=== PATIENT | female | born 1980 | race Caucasian/White ===

== ENCOUNTER 2019-10-01 18:25 | Emergency (ER) | payer MEDICARE, SELFPAY ==
[2019-10-01 18:32] VITALS: BP 120/87; PULSE 102; RESP 18; TEMP 36.6; O2SAT 98; BMI 22.8
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
--- NOTE | 2019-10-01 18:44 | W.ED.NECK ---
HPI - Neck Pain/Injury General: Chief Complaint: Neck Pain/Injury Stated Complaint: Neck pain Time Seen by Provider: 10/01/19 18:41 History of Present Illness: HPI Narrative: Patient was stepping up into [employer] this afternoon and she fell backwards landing on her back and now complains of upper back lower neck pain. MD complaint: neck pain and upper back pain Onset (ago): hour(s) Place: street/outdoors Severity: moderate Severity scale (1-10): 5 Quality: sharp and aching Duration: constant Relieving factors: immobilization Exacerbating factors: movement of neck Context: fall Associated symptoms: Reports no associated symptoms; Denies headache(s) or nausea Treatments prior to arrival: other (Took an alprazolam) Review of Systems Const: Denies: fever, chills or body aches Eyes: Denies: change in vision or blurry vision ENMT: Denies: throat pain or nasal congestion Card: Denies: chest pain or shortness of breath on exertion Resp: Denies: shortness of breath, productive cough or non-productive cough GI: Denies: abdominal pain, nausea or vomiting Musc: Reports: neck pain and back pain; Denies: extremity pain Skin/Breast: Denies: rash Neuro: Denies: headache Psych: Denies: anxiety or depression Kenn/Lymph: Denies: easy bruising PFSH ED PFSH: Social History Smoking and tobacco status: current every day smoker Female Reproductive History: Date of last menstrual period: 06/28/19 Physical Exam Const: COMMON NORMALS: no apparent distress, average body habitus and oriented x3 HENMT: COMMON NORMALS: normocephalic HEAD & SCALP: normal to inspection and normocephalic FACE & SINUS: normal facial exam Eye: COMMON NORMALS: conjunctivae normal GENERAL EYE: normal appearance of both eyes CONJUNCTIVA: Yes conjunctivae normal Neck/C-Spine: COMMON NORMALS: no JVD GENERAL: Yes normal visual inspection CERVICAL SPINE: Yes cervical ROM normal and Yes cervical spine tenderness Chest: COMMONS NORMALS: inspection of chest normal Resp: COMMON NORMALS: normal respiratory effort and clear to auscultation bilaterally AUSCULTATION: clear to auscultation bilaterally Cardio: COMMON NORMALS: no JVD, regular rate and regular rhythm RATE: regular rate RHYTHM: regular rhythm GI: COMMON NORMALS: normal to inspection, nondistended, normoactive bowel sounds Back/Pelvis: THORACIC SPINE/UPPER BACK: Yes normal to inspection and Yes thoracic spinal tenderness Extremity: COMMON NORMALS: normal to inspection and full ROM Neuro: COMMON NORMALS: oriented x3 Course Vital Signs: Vital signs: Vital Signs Temperature 97.8 F 10/01/19 18:32 Pulse Rate 102 H 10/01/19 18:32 Respiratory Rate 18 10/01/19 18:32 Blood Pressure 120/87 10/01/19 18:32 Pulse Oximetry 98 10/01/19 18:32 MDM - Neck Pain/Injury MDM Narrative: Medical decision making narrative: Discussed x-ray results with Dr. Perkins he recommends do a CT neck and head Discharge Plan Discharge Prescriptions: No Action alprazolam 0.5 mg tablet See Rx Instructions .ROUTE .COMPLEX RF: 0 fluoxetine 20 mg capsule 20 mg PO DAILY RF: 0 Coding Level of Care Code ED Mechanical Systems Engineer for Lang Fwd Exam Comprehensive
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
[2019-10-01 19:24] VITALS: O2SAT 97
[2019-10-01] MEDS: HYDROcodone-acetaminophen 7.5-325 mg Tablet 1 TAB PO (19:43)
[2019-10-01 19:46] VITALS: BP 133/90; PULSE 90; RESP 18; O2SAT 99
== END 2019-10-01 19:46 | disposition home or self-care (01) ==
PROVIDERS: Emergency Provider Nurse Practitioner Family; PCP Nurse Practitioner
DX: M54.2 Cervicalgia (principal); M54.6 Pain in thoracic spine; F17.200 Nicotine dependence, unspecified, uncomplicated
CPT/HCPCS: 12345; 70450; 72040; 72072; 72125; 99282; 99283

== ENCOUNTER 2022-08-06 05:56 | Emergency (ER) | payer MEDICARE, MEDICAID, SELFPAY ==
--- NOTE | 2022-08-06 06:02 | XRR_ITS ---
PROCEDURE INFORMATION: Exam: XR Left Ankle Exam date and time: 08/06/2022 6:20 AM Age: 42 years old Clinical indication: Pain; Ankle; Left TECHNIQUE: Imaging protocol: Radiologic exam of the Left ankle. Views: 3 or more views. COMPARISON: No relevant prior studies available. FINDINGS: Bones/joints: Normal. Soft tissues: Mild soft tissue swelling. XR/XR ankle LT min 3V* [id number] IMPRESSION: Negative for acute osseous injury.
[2022-08-06 06:03] VITALS: BP 119/67; PULSE 100; RESP 18; TEMP 36.1; O2SAT 100; BMI 22.3
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
[2022-08-06 06:30] VITALS: BP 123/72; PULSE 88; RESP 16; O2SAT 98
[2022-08-06 06:54] VITALS: BP 116/79; PULSE 97; RESP 16; O2SAT 98
== END 2022-08-06 06:57 | disposition home or self-care (01) ==
PROVIDERS: Emergency Provider Family Medicine; PCP Nurse Practitioner
DX: S93.402A Sprain of unspecified ligament of left ankle, initial encounter (principal); Y04.8XXA Assault by other bodily force, initial encounter
CPT/HCPCS: 73610; 99283

== ENCOUNTER 2022-08-06 14:37 | Emergency (ER) | payer MEDICARE, MEDICAID, SELFPAY ==
[2022-08-06 14:41] VITALS: BMI 22.3
--- NOTE | 2022-08-06 16:15 | PC.PHAR ---
unable to verify medications with pt-no meds pull up on ext med history-diclofenac 75mg q12h prn written on 08/06/22-[facility] last filled prozac 20mg daily and zyprexa 10mg daily last filled 10/2020 14d/s-
--- NOTE | 2022-08-06 16:30 | ECG_ITS ---
[facility] Test Date: 2022-08-06 Pat Name: Ellie Adler Department: Room: Gender: Female Printing Pressman: : 1980 Requested By: Ralph Wilde Order Number: [id number] Cathie MD: Mary Tejeda M.D. Measurements Intervals [place] Rate: 100 P: 66 TX: 149 QRS: 76 QRSD: 82 T: 60 QT: 349 QTc: 452 Interpretive Statements SINUS TACHYCARDIA MINIMAL VOLTAGE CRITERIA FOR LVH, CONSIDER NORMAL VARIANT [MEETS CRITERIA IN ONE OF: R(aVL), S(V1), R(V5), R(V5/V6)+S(V1)] ABNORMAL RHYTHM ECG Compared to ECG 02/13/2018 11:57:38 No significant changes Electronically Signed On 08-06-2022 20:59:39 COVER STRIPPER by Mary Tejeda M.D. [email or web address]
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
[2022-08-06 17:06] LABS: Amphetamines Screen Urine Positive (Negative); Barbiturates Screen Urine Negative (Negative); Benzodiazepines Screen Urine Negative (Negative); Cocaine Screen Urine Negative (Negative); Opiate Screen Urine Negative (Negative); PCP Screen Urine Negative (Negative); THC Screen Urine Positive (Negative)
[2022-08-06 17:18] LABS: Bilirubin Urine Neg (Negative); Blood Urine Neg (Negative); Glucose Urine UA Norm (Normal); Ketones Urine 1+ (Negative); Nitrate Urine Negative (Negative); Protein Urine Neg (Negative); Urine Appearance Hazy (CLEAR); Urine Color Yellow (Yellow); Urobilinogen Urine Neg (Negative); pH Urine 5 (5-7)
[2022-08-06 17:19] LABS: Add Urine Culture? No; Add Urine Microscopic? YES; Bacteria Urine 1+ /hpf; Leukocyte Esterase Urine Negative (Negative); RBC Urine 0-4 /hpf (0-2); WBC Urine 0-4 /hpf (0-5)
--- NOTE | 2022-08-06 17:58 | PC.NURSE ---
PT REFUSED DC VITALS
== END 2022-08-06 17:30 | disposition home or self-care (01) ==
PROVIDERS: Emergency Provider Family Medicine; PCP Nurse Practitioner
DX: F15.10 Other stimulant abuse, uncomplicated (principal)
CPT/HCPCS: 80306; 81001; 93005; 99283

== ENCOUNTER 2022-08-06 22:17 | Inpatient (IN) | payer MEDICARE, MEDICAID, SELFPAY ==
[2022-08-06 22:20] VITALS: BP 107/74; PULSE 109; RESP 18; TEMP 36.6; O2SAT 98; BMI 20.5
--- NOTE | 2022-08-06 22:29 | W.ED.OVERDOS ---
HPI - Overdose General: Chief Complaint: Overdose Stated Complaint: OD Time Seen by Provider: 08/06/22 22:18 Source: EMS Mode of arrival: EMS Limitations: altered mental status History of Present Illness: 42-year-old female since her third visit today here in 12 hours patient had police called on her at the [employer] and she is being disruptive and psychotic she is here by EMS currently she has flight of diabetes she is telling me that she is seeing Satan and she keeps praying stable telling her name but not really able answer very other questions. She does have motor agitation here as well keep standing up she has been using methamphetamine as well. Review of Systems General: Reports: ROS unobtainable due to mental status PFS ED PFSH: Medical History No significant past medical history Surgical History No significant past surgical history Social History Smoking and tobacco status: current every day smoker Female Reproductive History: Date of last menstrual period: 06/28/19 Physical Exam Const: COMMON NORMALS: negative for patient oriented x3 GENERAL APPEARANCE: anxious HENMT: COMMON NORMALS: normocephalic and atraumatic HEAD & SCALP: normocephalic and atraumatic Eye: COMMON NORMALS: Equal, round and reactive pupils present and EOMs intact bilaterally PUPIL: Yes Equal, round and reactive pupils present Neck/C-Spine: COMMON NORMALS: full ROM and supple Chest: COMMONS NORMALS: normal inspection of the chest and normal palpation of entire chest wall Resp: COMMON NORMALS: normal respiratory effort, No retractions, No use of accessory muscles and clear to auscultation bilaterally AUSCULTATION: clear to auscultation bilaterally Cardio: COMMON NORMALS: regular rate, regular rhythm and No murmurs present (Cardio) RATE: regular rate RHYTHM: regular rhythm GI: COMMON NORMALS: Normal to inspection, nondistended, normoactive bowel sounds present, Soft to palpation, non-tender and no masses PALPATION: Yes Soft to palpation Extremity: COMMON NORMALS: normal to inspection and full ROM Neuro: COMMON NORMALS: moves all extremities and no focal motor deficits; negative for patient oriented x3 Psych: APPEARANCE: Yes disheveled and Yes bizarre ATTITUDE: Yes bizarre MOOD & AFFECT: Yes anxious and Yes expansive affect THOUGHT CONTENT: Yes delusions and Yes Hallucination(s) present Skin: COMMON NORMALS: no rashes or lesions noted and no wounds GENERAL SKIN EXAM: no rashes or lesions noted Course Vital Signs: Vital signs: Vital Signs Temperature 98 F 08/06/22 22:20 Pulse Rate 109 H 08/06/22 22:20 Respiratory Rate 18 08/06/22 22:20 Blood Pressure 107/74 08/06/22 22:20 Pulse Oximetry 98 08/06/22 22:20 MDM - Overdose Medical Decision Making Patient presents here with acute psychosis likely from methamphetamine abuse patient placed under 96-hour hold medically cleared I spoke to his psychiatrist will admit at this time. Lab Data 08/06/22 22:48 08/06/22 22:48 Discharge Plan Discharge Patient Disposition: Admitted As Inpatient Admit Provider: Esteban Weeks Clinical Impression: Methamphetamine abuse, Acute psychosis Condition: Stable Coding Level of Care Code ED Bus Driver/Monitor for Rl Fwd Exam Comprehensive
[2022-08-06] MEDS: LORazepam 2 mg/mL INJ 1 mL IM (22:55)
[2022-08-06] MEDS: haloperidol inj 5 mg/mL INJ 1 mL IM (22:55)
[2022-08-06 23:04] LABS: Basophils # 0.1 10^3/uL (0.0-0.1); Basophils % 0.6 %; Eosinophils # 0.4 10^3/uL (0.0-0.8); Eosinophils % 3.8 %; Hematocrit 41.8 % (37.0-47.0); Hemoglobin 13.4 g/dL (11.5-15.3); Lymphocytes # 2.6 10^3/uL (0.8-4.8); Lymphocytes % 22.3 %; Mean Corpuscular HGB Conc 32.1 g/dL (30.0-36.0); Mean Corpuscular Hemoglobin 26.7 pg (28.0-34.0); Mean Corpuscular Volume 83.3 fl (81-99); Mean Platelet Volume 10.3 fL (7.4-10.4); Monocytes % 8.7 %; Neutrophils % 64.3 %; Nucleated Red Blood Cells % 0 %; Platelet Count 407 10^3/cmm (130-400); Red Blood Count 5.02 10^6/uL (4.1-5.3); Red Cell Distribution Width 13.1 % (12.1-15.1); White Blood Count 11.7 10^3/uL (4.0-10.0)
[2022-08-06 23:12] LABS: Alanine Aminotransferase 71 U/L (0-33); Albumin Level 4.2 g/dL (3.5-5.2); Alkaline Phosphatase 99 U/L (35-105); Anion Gap 14.6 (5-19); Aspartate Amino Transferase 55 U/L (0-32); Blood Urea Nitrogen 16 mg/dL (6-20); Calcium 9.2 mg/dL (8.5-10.5); Carbon Dioxide 22 mmol/L (22-29); Chloride 101 mmol/L (98-107); Globulin 2.9 g/dL (1.3-4.6); Glomerular Filtration Rate 136.6 mL/min (90-130); Glucose 104 mg/dL (65-115); Osmolality Calculated 279 mOsm/kg (285-295); Potassium 3.6 mmol/L (3.5-5.1); Sodium 134 mmol/L (136-145); Total Bilirubin 0.4 mg/dL (0.15-1.2); Total Protein 7.1 g/dL (6.6-8.7)
[2022-08-06 23:22] LABS: Acetaminophen < 5.0 ug/mL (10-30); Alcohol Level < 10 mg/dL (0-10); Salicylate < 0.3 mg/dL (3-10)
[2022-08-07 00:21] VITALS: BP 105/63; PULSE 96; RESP 16; TEMP 36.6; O2SAT 97
[2022-08-07 00:31] VITALS: BP 97/63; PULSE 110; RESP 16
--- NOTE | 2022-08-07 01:37 | PC.NURSE ---
pt admitted to [facility] from ED under 96 hour hold. pt arrived to unit stumbling and unable to stand or walk without assistance. pt answers to name but is unable to stay awake for assessment. pt is very malodorous and disheveled. wanded for safety as pt cannot be changed into unit scrubs at this time. pt had gatito wrap to left ankle. this staff removed this and placed in pt belongings. no other issues can be noted at this time. will monitor for safety.
--- NOTE | 2022-08-07 02:58 | PC.NURSE ---
At 2255 notice of rights of involuntary patient read to patient. All questions answered. Patient gave verbal confirmation of understanding. JR David, at bedside.
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
--- NOTE | 2022-08-07 10:46 | PC.NURSE ---
Pt has been resting in bed with eyes closed since start of shift at 0700; respirations have remained even and unlabored.
[2022-08-07 14:00] VITALS: BP 106/55; PULSE 116; RESP 20; TEMP 36.6; O2SAT 97
--- NOTE | 2022-08-07 14:37 | PC.NURSE ---
Attempted to awaken pt to complete admission. Pt did not awaken; just continued to snore. Respirations even and unlabored.
--- NOTE | 2022-08-07 15:27 | PC.NURSE ---
Pt up to nurses station, walking aimlessly and mumbling to herself. Staff was able to ascertain the pt wanted some phone numbers and wondered when she could leave. Staff provided pt water and this director underwriter sales walked with the patient back to her room in an effort to complete the pt's admission, however, once the pt lay down on her bed, she returned to sleep. Respirations even and unlabored.
--- NOTE | 2022-08-07 15:33 | PC.OT ---
OT Eval Attempted - Therapist attempted eval x2 on this day, patient would not arouse from sleeping in order to participate in evaluation process. Will attempt at a later date.
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
[2022-08-07] MEDS: hyDROXYzine 25 mg Capsule 50 MG PO (18:12)
[2022-08-07 18:40] LABS: Amphetamines Screen Urine Positive (Negative); Benzodiazepines Screen Urine Positive (Negative); Cocaine Screen Urine Negative (Negative); PCP Screen Urine Negative (Negative); THC Screen Urine Positive (Negative)
[2022-08-07 18:41] LABS: Barbiturates Screen Urine Negative (Negative); Opiate Screen Urine Negative (Negative)
[2022-08-07 22:00] VITALS: RESP 16
[2022-08-08] MEDS: hyDROXYzine 25 mg Capsule 50 MG PO ×3 (11:48→20:08)
[2022-08-08 14:00] VITALS: BP 110/72; PULSE 91; RESP 18; O2SAT 98
[2022-08-08] MEDS: nicotine 2 mg Gum BUCCAL ×3 (14:52→20:09)
--- NOTE | 2022-08-08 17:00 | P.NPUPN_ITS ---
Subjective NPU Subjective: Patient presented today reporting that things were going better. She was much less isolative and out on the unit. However her insight continued to be slim to none as she denied any issues involving addiction and reported that her issue was regarding the fact that she had not accepted Satan. She certainly did not believe that medications were something to be considered and she reported she was ready to leave as soon as we would discharge her. Mental Status Exam MSE Comments: This is a slender but well-nourished, well-developed appearing white female looking older than her stated age with limited grooming and absent eye contact.? No abnormal movements except for mild to moderate psychomotor retardation.? More cooperative with exam in mild to moderate distress.? Speech was limited and decreased rate and volume.? Mood described as fine, affect irritable.? Thought process linear at best.? Thought content: Patient denies suicidal or homicidal ideation, there were no delusions reported but clear hyperreligious, paranoid and persecutory delusions noted.? Attention, concentration and memory were limited but none were formally tested.? She is alert and appeared to be oriented to person and place.? Insight, judgment and impulse control are are impaired. Vitals/I&O/Wt Last Vital Signs Temp 97.8 F 08/07/22 14:00 Pulse 91 08/08/22 14:00 Resp 18 08/08/22 14:00 BP 110/72 08/08/22 14:00 Pulse Ox 98 08/08/22 14:00 Weight last 48 hrs Weight 61.235 kg Data NPU 08/06/22 22:48 08/06/22 22:48 A&P Assessment and plan (1) Methamphetamine use disorder, severe: (2) Acute psychosis: Plan This is a 42-year-old white female with a long history of mental health and addiction issues who presented after being picked up by police with bizarre beh aviors and a local convenience store not well enough to provide contemporaneous information. 1. Continue current medications. Currently refusing medications. 2. Continue every 15 minute checks for safety. 3. Encourage individual, group and milieu therapies. 4. Encourage sober living treatment after discharge at the highest level of care to which she is willing to commit. Involuntary Hold Information 96 Hour Hold: 96 Hour Involuntary Admission: Yes Attestations NPU Medical Necessity Statement*: Inpatient psychiatric hospitalization is medically necessary and the clinically appropriate intervention at this time. We will monitor/initiate medications and make changes as indicated. Likely length of stay 7 to 10 days. Coding Level of Care Code Acute Code for g Fwd Diagnoses Methamphetamine use disorder, severe F15.20 Acute psychosis F23
[2022-08-08] MEDS: trazodone 50 mg Tablet PO (20:06)
[2022-08-08] MEDS: diclofenac 75 mg DR Tablet PO (20:08)
[2022-08-08] MEDS: OLANZapine 5 mg ODT PO (20:09)
[2022-08-09] MEDS: nicotine 2 mg Gum BUCCAL ×2 (11:44→15:12)
[2022-08-09] MEDS: hyDROXYzine 25 mg Capsule 50 MG PO ×2 (13:13→20:11)
[2022-08-09 14:00] VITALS: BP 109/71; PULSE 113; RESP 17; TEMP 36.6; O2SAT 97
--- NOTE | 2022-08-09 15:37 | W.PM.NPUPNS ---
Subjective NPU Subjective: Today continuing to report that she believes she is here because she will not accept Satan and denounce her [employer]. She initially was saying that she would not consider medications but then at least was willing to hear medications that this justowriter operator might consider. We discussed the fact that without medication her discharge timeline is greatly increased. Mental Status Exam MSE Comments: This is a slender but well-nourished, well-developed appearing white female looking older than her stated age with limited grooming and absent eye contact.? No abnormal movements except for mild to moderate psychomotor retardation.? More cooperative with exam in mild distress.? Speech was more spontaneous, but decreased rate and volume.? Mood described as fine, affect less irritable.? Thought process linear at best.? Thought content: Patient denies suicidal or homicidal ideation, there were no delusions reported but clear hyperreligious, paranoid and persecutory delusions noted.? Attention and concentration are improving and memory was unreliable but none were formally tested.? She is alert and appeared to be oriented to person and place.? Insight, judgment and impulse control are are impaired. Vitals/I&O/Wt Last Vital Signs Temp 97.9 F 08/09/22 14:00 Pulse 113 H 08/09/22 14:00 Resp 17 08/09/22 14:00 BP 109/71 08/09/22 14:00 Pulse Ox 97 08/09/22 14:00 Weight last 48 hrs Weight 61.235 kg Data NPU 08/06/22 22:48 08/06/22 22:48 A&P Assessment and plan (1) Methamphetamine use disorder, severe: (2) Acute psychosis: Plan This is a 42-year-old white female with a long history of mental health and addiction issues who presented after being picked up by police with bizarre behaviors and a local convenience store not well enough to provide contemporaneous information. 1. Continue current medications. Currently refusing medications. 2. Continue every 15 minute checks for safety. 3. Encourage individual, group and milieu therapies. 4. Encourage sober living treatment after discharge at the highest level of care to which she is willing to commit. Involuntary Hold Information 96 Hour Hold: 96 Hour Involuntary Admission: Yes Attestations NPU Medical Necessity Statement*: Inpatient psychiatric hospitalization is medically necessary and the clinically appropriate intervention at this time. We will monitor/initiate medications and make changes as indicated. Likely length of stay 7 to 10 days. Coding Level of Care Code Acute Code for Chg Fwd Diagnoses Methamphetamine use disorder, severe F15.20 Acute psychosis F23
[2022-08-09] MEDS: OLANZapine 5 mg ODT PO (16:46)
[2022-08-09] MEDS: diclofenac 75 mg DR Tablet PO (20:10)
[2022-08-09] MEDS: trazodone 50 mg Tablet PO (21:13)
[2022-08-10] MEDS: nicotine 2 mg Gum BUCCAL ×3 (11:32→16:44)
[2022-08-10] MEDS: hyDROXYzine 25 mg Capsule 50 MG PO (11:32)
[2022-08-10] MEDS: OLANZapine 5 mg ODT PO (12:54)
--- NOTE | 2022-08-10 12:54 | PC.NURSE ---
PRN SENIOR DIRECTOR OF [employer]LOBAL [employer]CIAL [employer]CH[employer]UTIONS Patient approached nurses' station and stated she needed anxiety meds because she was having anxiety about everything in my life. This RN discussed coping mechanisms such as reading, writing, and exercise. Patient administered zyprexa 10 mg ODT.
[2022-08-10 14:00] VITALS: RESP 18
[2022-08-10] MEDS: haloperidol 5 mg Tablet PO (16:07)
--- NOTE | 2022-08-10 16:07 | PC.NURSE ---
PRN Landscaper Helper Patient approached this RN stating that she needed her anxiety medications now. This RN asked if anything in particular was making the patient anxious to which she replied, I'm just nervous. This RN suggested breathing techniques and other coping skills such as distraction. Patient continued to say she needed her meds. This RN asked again what was making her feel anxious or what was making her nervous to which the patient began yelling, oh my God! My fucking kids I guess. Damn! Patient was administered haldol 5 mg PO as it was too early to administer zyprexa or vistaril.
--- NOTE | 2022-08-10 18:13 | P.NPUPN_ITS ---
Subjective NPU Subjective: Patient presented today reporting that she is feeling better but focusing on discharge. We discussed the reason why she is in the hospital and she continues to be focused on not taking Satan as her savior and that the system has worked against her because of her Mandaen. She was resistant to medications that were suggested by this telegraphic typewriter operator chief but did agree to restarting her Zyprexa at a lower dose. We discussed risks, benefits and alternatives of the medications and she appeared to understand and agreed to proceed as documented in this note. Mental Status Exam MSE Comments: This is a slender but well-nourished, well-developed appearing white female looking older than her stated age with limited grooming and improving eye contact.? No abnormal movements except for mild psychomotor retar dation.? More cooperative with exam in mild distress.? Speech was more spontaneous, but decreased rate and volume.? Mood described as fine, affect less irritable.? Thought process linear at best.? Thought content: Patient denies suicidal or homicidal ideation, there were no delusions reported but clear hyperreligious, paranoid and persecutory delusions noted.? Attention and concentration are improving and memory was unreliable but none were formally tested.? She is alert and appeared to be oriented to person and place.? Insight, judgment and impulse control are are impaired. Vitals/I&O/Wt Last Vital Signs Temp 97.9 F 08/09/22 14:00 Pulse 113 H 08/09/22 14:00 Resp 18 08/10/22 14:00 BP 109/71 08/09/22 14:00 Pulse Ox 97 08/09/22 14:00 Data NPU 08/06/22 22:48 08/06/22 22:48 A&P Assessment and plan (1) Methamphetamine use disorder, severe: (2) Acute psychosis: Plan This is a 42-year-old white female with a long history of mental health and addiction issues who presented after being picked up by police with bizarre behaviors and a local convenience store not well enough to provide contemporaneous information. 1. Continue current medications. Restart Zyprexa 10 mg p.o. nightly with plan to titrate to effect. 2. Continue every 15 minute checks for safety. 3. Encourage individual, group and milieu therapies. 4. Encourage sober living treatment after discharge at the highest level of care to which she is willing to commit. Involuntary Hold Information 96 Hour Hold: 96 Hour Involuntary Admission: Yes Attestations NPU Medical Necessity Statement*: Inpatient psychiatric hospitalization is medically necessary and the clinically appropriate intervention at this time. We will monitor/initiate medications and make changes as indicated. Likely length of stay 6-9 days. Coding Level of Care Code Acute Code for Chg Fwd Diagnoses Methamphetamine use disorder, severe F15.20 Acute psychosis F23
[2022-08-10] MEDS: OLANZapine 10 mg TABLET PO (20:38)
[2022-08-10] MEDS: acetaminophen 325 mg Tablet 650 MG PO (20:39)
[2022-08-11 14:00] VITALS: BP 105/75; PULSE 125; RESP 18; TEMP 36.8; O2SAT 97
[2022-08-11] MEDS: docusate sodium 100 mg Capsule PO (14:55)
[2022-08-11] MEDS: nicotine 4 mg lozenge MUCOUS MEM ×3 (14:55→19:43)
[2022-08-11] MEDS: hyDROXYzine 25 mg Capsule 50 MG PO (14:57)
--- NOTE | 2022-08-11 17:20 | P.NPUPN_ITS ---
Subjective NPU Subjective: Patient presented today reporting that he is feeling much better in relation to her symptoms. She continues to be resistant to talking about her addiction and the role that they have played in her being hospitalized. She instead focused on having restarted the Zyprexa and feeling completely better. We discussed how we are seeing symptoms that are concerning for psychosis. She was resistant to that position and then turned her focus on whether she would be discharged tomorrow at the end of her life 6-hour hold and after a lengthy somewhat contentious discussion we agreed to talk again in the morning and make a decision about discharge versus 21-day hold. Mental Status Exam MSE Comments: This is a slender but well-nourished, well-developed appearing white female looking older than her stated age with limited grooming and improving eye contact.? No abnormal movements except for mild psychomotor retardation.? More cooperative with exam in mild distress.? Speech was more spontaneous, but decreased rate and volume.? Mood described as much better, affect less irritable.? Thought process linear and somewhat more organized.? Thought content: Patient denies suicidal or homicidal ideation, there were no delusions reported but clear hyperreligious, paranoid and persecutory delusions noted.? Attention and concentration are improving and memory was unreliable but none were formally tested.? She is alert and appeared to be oriented to person and place.? Insight, judgment and impulse control are are impaired. Vitals/I&O/Wt Last Vital Signs Temp 98.2 F 08/11/22 14:00 Pulse 125 H 08/11/22 14:00 Resp 18 08/11/22 14:00 BP 105/75 08/11/22 14:00 Pulse Ox 97 08/11/22 14:00 Data NPU 08/06/22 22:48 08/06/22 22:48 A&P Assessment and plan (1) Methamphetamine use disorder, severe: (2) Acute psychosis: Plan This is a 42-year-old white female with a long history of mental health and addiction issues who presented after being picked up by police with bizarre behaviors and a local convenience store not well enough to provide contemporaneous information. 1. Continue current medications. Restarted Zyprexa 10 mg p.o. nightly with plan to titrate to effect. 2. Continue every 15 minute checks for safety. 3. Encourage individual, group and milieu therapies. 4. Encourage sober living treatment after discharge at the highest level of care to which she is willing to commit. 5. We will get some collateral information and work with the treatment team to determine whether we will file a 21 day hold in the morning. Involuntary Hold Information 96 Hour Hold: 96 Hour Involuntary Admission: Yes Attestations NPU Medical Necessity Statement*: Inpatient psychiatric hospitalization is medically necessary and the clinically appropriate intervention at this time. We will monitor/initiate medications and make changes as indicated. Likely length of stay 5-8 days. 96-hour hold up tomorrow we will either need to release or placement 21-day-old. Coding Level of Care Code Acute Code for [facility] Fwd Diagnoses Methamphetamine use disorder, severe F15.20 Acute psychosis F23
[2022-08-11] MEDS: acetaminophen 325 mg Tablet 650 MG PO ×2 (18:11→21:22)
[2022-08-11] MEDS: magnesium hydroxide 30 mL UDC PO (20:38)
[2022-08-11] MEDS: OLANZapine 10 mg TABLET PO (20:38)
[2022-08-11] MEDS: trazodone 50 mg Tablet PO (20:38)
--- NOTE | 2022-08-12 13:25 | DCPLANNER ---
IMM was printed and given to pt with rights explained. Copy placed in pts chart.
[2022-08-12 14:00] VITALS: BP 111/73; PULSE 96; RESP 18; TEMP 36.6; O2SAT 97
[2022-08-12] MEDS: nicotine 4 mg lozenge MUCOUS MEM (14:07)
[2022-08-12] MEDS: hyDROXYzine 25 mg Capsule 50 MG PO (14:54)
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
[2022-08-12 16:04] VITALS: BP 111/73; PULSE 96; RESP 18; TEMP 36.6; O2SAT 97
== END 2022-08-12 17:01 | disposition home or self-care (01) | DRG 897 ==
LOC: ER 22:38 → NP 22:42
PROVIDERS: Admitting Provider Psychiatry & Neurology Psychiatry; Emergency Provider Emergency Medicine; PCP Nurse Practitioner; Visit Provider Psychiatry & Neurology Psychiatry
DX: F15.259 Other stimulant dependence with stimulant-induced psychotic disorder, unspecified (principal); F12.10 Cannabis abuse, uncomplicated; F17.210 Nicotine dependence, cigarettes, uncomplicated
CPT/HCPCS: 73610; 80053; 80306; 80307; 81001; 85025; 93005; 96372; 97165; 99238; 99283; 99285; J1630; J2060

== ENCOUNTER 2022-08-27 13:14 | Emergency (ER) | payer MEDICARE, MEDICAID, SELFPAY ==
[2022-08-27 13:16] VITALS: BP 110/71; PULSE 81; RESP 16; O2SAT 99
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
[2022-08-27 13:57] VITALS: PULSE 81; RESP 16; O2SAT 93
--- NOTE | 2022-08-28 10:53 | DCPLANNER ---
Addendum entered by Betina Aleman 09/16/22 08:09: Patient had a follow up appointment scheduled with ortho - patient did not attend appointment Addendum entered by Betina Aleman 09/01/22 14:41: Patient has a follow up appointment scheduled for Thursday, September 08, 2022 at 11:[address] Soares at ortho. Clinic will call patient with appointment information. Original Note: manager reliability had message to schedule a follow up appointment for patient with ortho. manager reliability sent patients information to the front office staff at ortho. Patients information will be printed and reviewed. Clinic will call patient with appointment information.
== END 2022-08-27 13:58 | disposition home or self-care (01) ==
PROVIDERS: Emergency Provider Family Medicine; PCP Nurse Practitioner
DX: G89.29 Other chronic pain (principal); M54.2 Cervicalgia
CPT/HCPCS: 99283

== ENCOUNTER → 2022-11-26 13:19 | Outpatient (BNVA) | payer MEDICARE, MEDICAID, SELFPAY | PROVIDERS: PCP Nurse Practitioner; Visit Provider Physician Assistant | DX: M54.2 Cervicalgia (principal) | CPT/HCPCS: 72050; 99203 ==

== ENCOUNTER 2023-02-06 15:34 | Inpatient (IN) | payer MEDICARE, MEDICAID, SELFPAY ==
[2023-02-06 15:58] VITALS: PULSE 89; RESP 18; O2SAT 95
--- NOTE | 2023-02-06 16:05 | ED.C_ITS ---
Documented by User: Vikash Laurent MD 02/09/23 06:10 HPI - Psych General: Chief Complaint: Psychiatric Symptoms Stated Complaint: sob Time Seen by Provider: 02/06/23 16:03 History of Present Illness: 42-year-old female presents emergency department with heightened mood. She is very erratic with her thinking she is yelling in the waiting room and yelling in the ER exam room. She states she did smoke some marijuana earlier and does intermittently drink alcohol. She appears to be very elevated and appears to be having visual hallucinations. She states that she feels like something is crawling on her and crawling on her mouth. She hyper excited with exaggerated movements. Associated symptoms: Reports visual hallucinations; Deny homicidal ideation or suicidal ideation Review of Systems General: Reports: 10 or more systems reviewed and unremarkable except in HPI and below Psych: Reports: anxiety, mood swings, sleeping less and visual hallucinations; Denies: suicidal ideation or homicidal ideation [facility] ED PFSH: Medical History Methamphetamine abuse No significant past medical history Surgical History No significant past surgical history Social History Smoking and tobacco status: unknown if ever smoked Substance/Drug Use: current Physical Exam Const: COMMON NORMALS: no acute distress, patient oriented x3, no limitations and alert HENMT: COMMON NORMALS: normocephalic, atraumatic, hearing grossly normal bilaterally, external ears normal, Normal external nose present and moist oral mucous membranes HEAD & SCALP: normocephalic and atraumatic NOSE: Normal external nose present EXTERNAL EAR: Yes external ears normal Eye: COMMON NORMALS: Equal, round and reactive pupils present, EOMs intact bilaterally and no scleral icterus PUPIL: Yes Equal, round and reactive pupils present Neck/C-Spine: COMMON NORMALS: full ROM, no lymphadenopathy, supple and no meningeal signs Chest: COMMONS NORMALS: normal palpation of entire chest wall Resp: COMMON NORMALS: normal respiratory effort, No use of accessory muscles and clear to auscultation bilaterally AUSCULTATION: clear to auscultation bilaterally Cardio: COMMON NORMALS: regular rate, regular rhythm, S1 normal heart sound present, S2 normal heart sound present and Peripheral pulses 2+ throughout RATE: regular rate RHYTHM: regular rhythm HEART SOUNDS: S1 normal heart sound present and S2 normal heart sound present PERIPHERAL PULSES: Peripheral pulses 2+ throughout GI: COMMON NORMALS: Normal to inspection, nondistended, normoactive bowel sounds present, Soft to palpation, non-tender and No hepatosplenomegaly present PALPATION: Yes Soft to palpation and Yes No hepatosplenomegaly present Extremity: COMMON NORMALS: normal to inspection, full ROM and capillary refill normal Neuro: COMMON NORMALS: patient oriented x3, moves all extremities and no sensory deficits noted SENSORIUM/ORIENTATION: Yes alert MENINGEAL SIGNS: Yes no meningeal signs Psych: APPEARANCE: Yes disheveled ATTITUDE: Yes paranoid, Yes Belligerent attititude/behavior present and Yes agitated ACTIVITY/MOTOR BEHAVIOR: Yes hyperactivity MOOD & AFFECT: Yes anxious, Yes irritable, Yes hostile affect and Yes expansive affect Course Vital Signs: Vital signs: Vital Signs Temperature 97.9 F 02/08/23 14:18 Pulse Rate 97 02/08/23 14:18 Respiratory Rate 16 02/08/23 14:18 Blood Pressure 98/66 02/08/23 14:18 Pulse Oximetry 99 02/08/23 14:18 Oxygen Delivery Me thod Room Air 02/08/23 14:00 MDM - Psych Lab Data 02/06/23 16:44 02/06/23 16:44 Laboratory Results WBC 13.8 10^3/uL (4.0-10.0) H 02/06/23 16:44 RBC 5.23 10^6/uL (4.1-5.3) 02/06/23 16:44 Hgb 14.2 g/dL (11.5-15.3) 02/06/23 16:44 Hct 44.8 % (37.0-47.0) 02/06/23 16:44 MCV 85.7 fl (81-99) 02/06/23 16:44 MCH 27.2 pg (28.0-34.0) L 02/06/23 16:44 MCHC 31.7 g/dL (30.0-36.0) 02/06/23 16:44 RDW 13.2 % (12.1-15.1) 02/06/23 16:44 Plt Count 388 10^3/cmm (130-400) 02/06/23 16:44 MPV 9.9 fL (7.4-10.4) 02/06/23 16:44 Neut % (Auto) 66.0 % 02/06/23 16:44 Lymph % (Auto) 21.4 % 02/06/23 16:44 [place] % (Auto) 8.4 % 02/06/23 16:44 Eos % (Auto) 3.1 % 02/06/23 16:44 Baso % (Auto) 0.8 % 02/06/23 16:44 Neut # (Auto) 9.10 10^3/uL (1.8-7.7) H 02/06/23 16:44 Lymph # (Auto) 2.9 10^3/uL (0.8-4.8) 02/06/23 16:44 [place] # (Auto) 1.2 10^3/uL (0.2-0.9) H 02/06/23 16:44 Eos # (Auto) 0.4 10^3/uL (0.0-0.8) 02/06/23 16:44 Baso # (Auto) 0.1 10^3/uL (0.0-0.1) 02/06/23 16:44 Nucleated RBC % (auto) 0 % 02/06/23 16:44 Nucleated RBCs # 0.0 /100WBC 02/06/23 16:44 Sodium 138 mmol/L (136-145) 02/06/23 16:44 Potassium 3.4 mmol/L (3.5-5.1) L 02/06/23 16:44 Chloride 101 mmol/L (98-107) 02/06/23 16:44 Carbon Dioxide 25 mmol/L (22-29) 02/06/23 16:44 Anion Gap 15.4 (5-19) 02/06/23 16:44 BUN 14 mg/dL (6-20) 02/06/23 16:44 Creatinine 0.7 mg/dL (0.5-0.9) 02/06/23 16:44 GFR Calculation 92.7 mL/min (90-130) 02/06/23 16:44 Glucose 103 mg/dL (65-115) 02/06/23 16:44 Calculated Osmolality 287 mOsm/kg (285-295) 02/06/23 16:44 Calcium 9.9 mg/dL (8.5-10.5) 02/06/23 16:44 Total Bilirubin 0.5 mg/dL (0.15-1.2) 02/06/23 16:44 AST 63 U/L (0-32) H 02/06/23 16:44 ALT 42 U/L (0-33) H 02/06/23 16:44 Alkaline Phosphatase 93 U/L (35-105) 02/06/23 16:44 Total Protein 7.4 g/dL (6.6-8.7) 02/06/23 16:44 Albumin 4.4 g/dL (3.5-5.2) 02/06/23 16:44 Globulin 3.0 g/dL (1.3-4.6) 02/06/23 16:44 TSH 0.87 uIU/mL (0.27-4.20) 02/06/23 16:44 HCG, Qual Negative (Negative) 02/06/23 17:29 Urine Color Muriel (Yellow) 02/06/23 17:29 Urine Appearance Hazy (CLEAR) A 02/06/23 17:29 Urine pH 5 (5-7) 02/06/23 17:29 Ur Specific [place] 1.030 (1.005-1.030) 02/06/23 17: Urine Protein Trace (Negative) 02/06/23 17:29 Urine Glucose (UA) Norm (Normal) 02/06/23 17:29 Urine Ketones 1+ (Negative) H 02/06/23 17:29 Urine Blood 2+ (Negative) H 02/06/23 17:29 Urine Nitrate Negative (Negative) 02/06/23 17: Urine Bilirubin 1+ (Negative) H 02/06/23 17:29 Urine Urobilinogen 4 mg/dL (Negative) H 02/06/23 17:29 Ur Leukocyte Esterase 1+ (Negative) H 02/06/23 17:29 Urine RBC 0-4 /hpf (0-2) H 02/06/23 17:29 Urine WBC 5-10 /hpf (0-5) H 02/06/23 17:29 Ur Squamous Epith Cells 10-15 /hpf (0-5) H 02/06/23 17:29 Amorphous Sediment 2+ /hpf 02/06/23 17:29 Urine Bacteria 2+ /hpf (NONE) H 02/06/23 17:29 Salicylates < 0.3 mg/dL (3-10) L 02/06/23 16:44 Urine Opiates Screen Negative ng/mL (Negative) 02/06/23 17:29 Acetaminophen < 5.0 ug/mL (10-30) L 02/06/23 16:44 Ur Barbiturates Screen Negative ng/mL (Negative) 02/06/23 17:29 Ur Phencyclidine Scrn Negative ng/mL (Negative) 02/06/23 17:29 Ur Amphetamines Screen Positive ng/mL (Negative) H 02/06/23 17:29 U Benzodiazepines Scrn Negative ng/mL (Negative) 02/06/23 17:29 Urine Cocaine Screen Negative ng/mL (Negative) 02/06/23 17:29 U Marijuana (THC) Screen Positive ng/mL (Negative) H 02/06/23 17:29 Ethyl Alcohol < 10 mg/dL (0-10) 02/06/23 16:44 Discharge Plan Discharge Patient Disposition: Admitted As Inpatient Admit Provider: Tello Macias Clinical Impression: Drug-induced psychotic disorder, Acute psychosis, Methamphetamine use disorder, severe Condition: Stable Discharge Diet: Usual diet Discharge Activity: Resume usual activity Coding Level of Care Code ED Boiler Or Engine Operator for Chg Fwd Documented by User: Tenzin Smart MD 02/06/23 18:29 HPI - Psych General: Chief Complaint: Psychiatric Symptoms Stated Complaint: sob Time Seen by Provider: 02/06/23 16:03 PFSH ED PFSH: Medical History Methamphetamine abuse No significant past medical history Surgical History No significant past surgical history Social History Smoking and tobacco status: unknown if ever smoked Substance/Drug Use: current Course Vital Signs: Vital signs: Vital Signs Temperature 97.9 F 02/08/23 14:18 Pulse Rate 97 02/08/23 14:18 Respiratory Rate 16 02/08/23 14:18 Blood Pressure 98/66 02/08/23 14:18 Pulse Oximetry 99 02/08/23 14:18 Oxygen Delivery Me thod Room Air 02/08/23 14:00 MDM - Psych Medical Decision Making Patient presents here with acute psychosis likely methamphetamine induced. Patient is medically cleared I spoke to psychiatrist and will admit at this time. Lab Data 02/06/23 16:44 02/06/23 16:44 Laboratory Results WBC 13.8 10^3/uL (4.0-10.0) H 02/06/23 16:44 RBC 5.23 10^6/uL (4.1-5.3) 02/06/23 16:44 Hgb 14.2 g/dL (11.5-15.3) 02/06/23 16:44 Hct 44.8 % (37.0-47.0) 02/06/23 16:44 MCV 85.7 fl (81-99) 02/06/23 16:44 MCH 27.2 pg (28.0-34.0) L 02/06/23 16:44 MCHC 31.7 g/dL (30.0-36.0) 02/06/23 16:44 RDW 13.2 % (12.1-15.1) 02/06/23 16:44 Plt Count 388 10^3/cmm (130-400) 02/06/23 16:44 MPV 9.9 fL (7.4-10.4) 02/06/23 16:44 Neut % (Auto) 66.0 % 02/06/23 16:44 Lymph % (Auto) 21.4 % 02/06/23 16:44 [place] % (Auto) 8.4 % 02/06/23 16:44 Eos % (Auto) 3.1 % 02/06/23 16:44 Baso % (Auto) 0.8 % 02/06/23 16:44 Neut # (Auto) 9.10 10^3/uL (1.8-7.7) H 02/06/23 16:44 Lymph # (Auto) 2.9 10^3/uL (0.8-4.8) 02/06/23 16:44 [place] # (Auto) 1.2 10^3/uL (0.2-0.9) H 02/06/23 16:44 Eos # (Auto) 0.4 10^3/uL (0.0-0.8) 02/06/23 16:44 Baso # (Auto) 0.1 10^3/uL (0.0-0.1) 02/06/23 16:44 Nucleated RBC % (auto) 0 % 02/06/23 16:44 Nucleated RBCs # 0.0 /100WBC 02/06/23 16:44 Sodium 138 mmol/L (136-145) 02/06/23 16:44 Potassium 3.4 mmol/L (3.5-5.1) L 02/06/23 16:44 Chloride 101 mmol/L (98-107) 02/06/23 16:44 Carbon Dioxide 25 mmol/L (22-29) 02/06/23 16:44 Anion Gap 15.4 (5-19) 02/06/23 16:44 BUN 14 mg/dL (6-20) 02/06/23 16:44 Creatinine 0.7 mg/dL (0.5-0.9) 02/06/23 16:44 GFR Calculation 92.7 mL/min (90-130) 02/06/23 16:44 Glucose 103 mg/dL (65-115) 02/06/23 16:44 Calculated Osmolality 287 mOsm/kg (285-295) 02/06/23 16:44 Calcium 9.9 mg/dL (8.5-10.5) 02/06/23 16:44 Total Bilirubin 0.5 mg/dL (0.15-1.2) 02/06/23 16:44 AST 63 U/L (0-32) H 02/06/23 16:44 ALT 42 U/L (0-33) H 02/06/23 16:44 Alkaline Phosphatase 93 U/L (35-105) 02/06/23 16:44 Total Protein 7.4 g/dL (6.6-8.7) 02/06/23 16:44 Albumin 4.4 g/dL (3.5-5.2) 02/06/23 16:44 Globulin 3.0 g/dL (1.3-4.6) 02/06/23 16:44 TSH 0.87 uIU/mL (0.27-4.20) 02/06/23 16:44 HCG, Qual Negative (Negative) 02/06/23 17:29 Urine Color Muriel (Yellow) 02/06/23 17:29 Urine Appearance Hazy (CLEAR) A 02/06/23 17: Urine pH 5 (5-7) 02/06/23 17:29 Ur Specific [place] 1.030 (1.005-1.030) 02/06/23 17: Urine Protein Trace (Negative) 02/06/23 17: Urine Glucose (UA) Norm (Normal) 02/06/23 17:29 Urine Ketones 1+ (Negative) H 02/06/23 17:29 Urine Blood 2+ (Negative) H 02/06/23 17: Urine Nitrate Negative (Negative) 02/06/23 17: Urine Bilirubin 1+ (Negative) H 02/06/23 17:29 Urine Urobilinogen 4 mg/dL (Negative) H 02/06/23 17:29 Ur Leukocyte Esterase 1+ (Negative) H 02/06/23 17:29 Urine RBC 0-4 /hpf (0-2) H 02/06/23 17:29 Urine WBC 5-10 /hpf (0-5) H 02/06/23 17:29 Ur Squamous Epith Cells 10-15 /hpf (0-5) H 02/06/23 17:29 Amorphous Sediment 2+ /hpf 02/06/23 17:29 Urine Bacteria 2+ /hpf (NONE) H 02/06/23 17:29 Salicylates < 0.3 mg/dL (3-10) L 02/06/23 16:44 Urine Opiates Screen Negative ng/mL (Negative) 02/06/23 17: Acetaminophen < 5.0 ug/mL (10-30) L 02/06/23 16:44 Ur Barbiturates Screen Negative ng/mL (Negative) 02/06/23 17:29 Ur Phencyclidine Scrn Negative ng/mL (Negative) 02/06/23 17: Ur Amphetamines Screen Positive ng/mL (Negative) H 02/06/23 17:29 U Benzodiazepines Scrn Negative ng/mL (Negative) 02/06/23 17:29 Urine Cocaine Screen Negative ng/mL (Negative) 02/06/23 17:29 U Marijuana (THC) Screen Positive ng/mL (Negative) H 02/06/23 17:29 Ethyl Alcohol < 10 mg/dL (0-10) 02/06/23 16:44 Discharge Plan Discharge Patient Disposition: Admitted As Inpatient Admit Provider: Tello Macias Clinical Impression: Drug-induced psychotic disorder, Acute psychosis, Methamphetamine use disorder, severe Condition: Stable Discharge Diet: Usual diet Discharge Activity: Resume usual activity Coding Level of Care Code ED Boiler Or Engine Operator for Rl Alva
[2023-02-06] MEDS: ziprasidone 20 mg/mL SDV IM (16:14)
[2023-02-06] MEDS: water for injection-sterile 10 ML 2 ML (16:15)
--- NOTE | 2023-02-06 16:30 | PC.PHAR ---
unable to verify medications with pt-pt is kunal-lianne last filled gabapentin 300mg bid on 01/18/23 60d/s-lianne states they filled a effexor er 150mg daily on 11/24/22 30d/s as a one time fill with no refills states they also filled zyprexa 15mg daily for the pt on 11/24/22 30d/s states the zyprexa has refills-
[2023-02-06] MEDS: haloperidol inj 5 mg/mL INJ 1 mL 10 MG IM (16:52)
[2023-02-06 17:06] LABS: Basophils # 0.1 10^3/uL (0.0-0.1); Basophils % 0.8 %; Eosinophils # 0.4 10^3/uL (0.0-0.8); Eosinophils % 3.1 %; Hematocrit 44.8 % (37.0-47.0); Hemoglobin 14.2 g/dL (11.5-15.3); Lymphocytes # 2.9 10^3/uL (0.8-4.8); Lymphocytes % 21.4 %; Mean Corpuscular HGB Conc 31.7 g/dL (30.0-36.0); Mean Corpuscular Hemoglobin 27.2 pg (28.0-34.0); Mean Corpuscular Volume 85.7 fl (81-99); Mean Platelet Volume 9.9 fL (7.4-10.4); Monocytes # 1.2 10^3/uL (0.2-0.9); Monocytes % 8.4 %; Nucleated Red Blood Cells % 0 %; Platelet Count 388 10^3/cmm (130-400); Red Blood Count 5.23 10^6/uL (4.1-5.3); Red Cell Distribution Width 13.2 % (12.1-15.1); White Blood Count 13.8 10^3/uL (4.0-10.0)
[2023-02-06 17:42] LABS: HCG Qualitative Urine. Negative (Negative)
[2023-02-06 17:48] LABS: Alanine Aminotransferase 42 U/L (0-33); Albumin Level 4.4 g/dL (3.5-5.2); Alkaline Phosphatase 93 U/L (35-105); Blood Urea Nitrogen 14 mg/dL (6-20); Calcium 9.9 mg/dL (8.5-10.5); Carbon Dioxide 25 mmol/L (22-29); Chloride 101 mmol/L (98-107); Glomerular Filtration Rate 92.7 mL/min (90-130); Glucose 103 mg/dL (65-115); Osmolality Calculated 287 mOsm/kg (285-295); Sodium 138 mmol/L (136-145); Thyroid Stimulating Hormone 0.87 uIU/mL (0.27-4.20); Total Bilirubin 0.5 mg/dL (0.15-1.2); Total Protein 7.4 g/dL (6.6-8.7)
[2023-02-06 17:50] LABS: Amphetamines Screen Urine Positive (Negative); Barbiturates Screen Urine Negative (Negative); Benzodiazepines Screen Urine Negative (Negative); Cocaine Screen Urine Negative (Negative); Opiate Screen Urine Negative (Negative); PCP Screen Urine Negative (Negative); THC Screen Urine Positive (Negative)
[2023-02-06 17:54] LABS: Acetaminophen < 5.0 ug/mL (10-30); Anion Gap 15.4 (5-19); Potassium 3.4 mmol/L (3.5-5.1); Salicylate < 0.3 mg/dL (3-10)
[2023-02-06 17:55] LABS: Aspartate Amino Transferase 63 U/L (0-32)
[2023-02-06 18:05] LABS: Add Urine Microscopic? YES; Bilirubin Urine 1+ (Negative); Blood Urine 2+ (Negative); Glucose Urine UA Norm (Normal); Ketones Urine 1+ (Negative); Leukocyte Esterase Urine 1+ (Negative); Nitrate Urine Negative (Negative); Protein Urine Trace (Negative); Urine Appearance Hazy (CLEAR); Urine Color Amber (Yellow); Urobilinogen Urine 4 mg/dL (Negative); pH Urine 5 (5-7)
[2023-02-06 18:06] LABS: Add Urine Culture? No; Amorphous Sediment Urine 2+ /hpf; Bacteria Urine 2+ /hpf; RBC Urine 0-4 /hpf (0-2)
[2023-02-06 18:07] LABS: Alcohol Level < 10 mg/dL (0-10)
[2023-02-06 20:56] VITALS: BP 138/92; PULSE 115; RESP 18; TEMP 37; O2SAT 97
[2023-02-06 21:57] VITALS: BP 132/78; PULSE 116; RESP 18; TEMP 37; O2SAT 97
[2023-02-06] MEDS: trazodone 50 mg Tablet PO (23:35)
[2023-02-07] MEDS: hyDROXYzine 25 mg Capsule 50 MG PO (00:02)
[2023-02-07 06:00] VITALS: BP 100/64; PULSE 90; RESP 17; TEMP 36.6; O2SAT 97
[2023-02-07] MEDS: nicotine 4 mg lozenge MUCOUS MEM ×2 (09:54→16:05)
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
[2023-02-07 14:00] VITALS: BP 100/63; PULSE 98; RESP 15; TEMP 36.6; O2SAT 98
[2023-02-07 19:40] VITALS: BP 100/66; PULSE 98; RESP 17; TEMP 37; O2SAT 98
[2023-02-07] MEDS: paliperidone ER 3 mg Tablet PO (20:42)
[2023-02-07] MEDS: trazodone 50 mg Tablet PO (22:09)
[2023-02-08 06:00] VITALS: BP 86/56; PULSE 91; RESP 16; O2SAT 97
[2023-02-08] MEDS: nicotine 4 mg lozenge MUCOUS MEM ×3 (08:57→14:28)
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
[2023-02-08 14:00] VITALS: BP 98/66; PULSE 97; RESP 16; TEMP 36.6; O2SAT 99
[2023-02-08 14:18] VITALS: BP 98/66; PULSE 97; RESP 16; TEMP 36.6; O2SAT 99
== END 2023-02-08 15:50 | disposition home or self-care (01) | DRG 897 ==
LOC: ER 18:29 → NP 18:36
PROVIDERS: Internal Medicine; Admitting Provider Psychiatry & Neurology Psychiatry; Emergency Provider Emergency Medicine; PCP Nurse Practitioner; Visit Provider Psychiatry & Neurology Psychiatry
DX: F15.151 Other stimulant abuse with stimulant-induced psychotic disorder with hallucinations (principal)
CPT/HCPCS: 80053; 80306; 80307; 81001; 81025; 84443; 85025; 96372; 97150; 97165; 99238; 99285; J1630; J3486

== ENCOUNTER 2023-03-10 11:43 | Inpatient (IN) | payer MEDICARE, SELFPAY ==
[2023-03-10 11:44] VITALS: BP 139/71; PULSE 115; RESP 20; TEMP 36.8; O2SAT 96; BMI 24.0
--- NOTE | 2023-03-10 11:50 | W.ED.PSYCHS ---
HPI - Psych General: Chief Complaint: Psychiatric Symptoms Stated Complaint: SI Time Seen by Provider: 03/10/23 11:44 Source: patient and police Limitations: no limitations History of Present Illness: 42-year-old female with history of schizophrenia along with methamphetamine abuse patient's daughter called police that she was hallucinating and psychotic. Patient was found in the middle of the road she is telling me she has poison dark frogs on her and is acutely psychotic she supposedly has not been taking her psych medicines PFSH ED PFSH: Medical History Methamphetamine abuse No significant past medical history Surgical History No significant past surgical history Social History Smoking and tobacco status: unknown if ever smoked Substance/Drug Use: current Physical Exam Const: COMMON NORMALS: patient oriented x3 GENERAL APPEARANCE: disheveled HENMT: COMMON NORMALS: normocephalic and atraumatic HEAD & SCALP: normocephalic and atraumatic Eye: COMMON NORMALS: Equal, round and reactive pupils present and EOMs intact bilaterally PUPIL: Yes Equal, round and reactive pupils present Neck/C-Spine: COMMON NORMALS: full ROM and supple Chest: COMMONS NORMALS: normal inspection of the chest and normal palpation of entire chest wall Resp: COMMON NORMALS: normal respiratory effort, No retractions, No use of accessory muscles and clear to auscultation bilaterally AUSCULTATION: clear to auscultation bilaterally Cardio: COMMON NORMALS: regular rate, regular rhythm and No murmurs present (Cardio) RATE: regular rate RHYTHM: regular rhythm GI: COMMON NORMALS: Normal to inspection, nondistended, normoactive bowel sounds present, Soft to palpation, non-tender and no masses PALPATION: Yes Soft to palpation Extremity: COMMON NORMALS: normal to inspection and full ROM Neuro: COMMON NORMALS: patient oriented x3, moves all extremities and no focal motor deficits Psych: COMMON NORMALS: mental status grossly normal and cooperative MOOD & AFFECT: Yes elevated mood THOUGHT PROCESS: Illogical thought process present THOUGHT CONTENT: Yes Hallucination(s) present Skin: COMMON NORMALS: no rashes or lesions noted and no wounds GENERAL SKIN EXAM: no rashes or lesions noted Course Vital Signs: Vital signs: Vital Signs Temperature 98.3 F 03/10/23 11:44 Pulse Rate 115 H 03/10/23 11:44 Respiratory Rate 20 H 03/10/23 11:44 Blood Pressure 139/71 03/10/23 11:44 Pulse Oximetry 96 03/10/23 11:44 Oxygen Delivery Me thod Room Air 03/10/23 11:44 MDM - Psych Medical Decision Making Patient presents here with acute psychosis she has a history consent for any has not been taking her meds she also has a history of methamphetamine abuse. Patient was psychotic here did have to give her Haldol and Ativan patient is placed under 96-hour she is medically cleared I spoke to psychiatrist and will admit. Medical Records I reviewed the patient's medical records. Lab Data I reviewed the patient's lab results. 03/10/23 12:51 03/10/23 12:51 Laboratory Results WBC 18.72 10^3/uL (3.29-11.43) H 03/10/23 12:51 RBC 5.21 10^6/uL (3.85-5.65) 03/10/23 12:51 Hgb 14.60 g/dL (11.27-16.99) 03/10/23 12:51 Hct 41.0 % (36-47) 03/10/23 12:51 MCV 78.7 fl (85-98) L 03/10/23 12:51 MCH 28.0 pg (27-33) 03/10/23 12:51 MCHC 35.6 g/dL (30-55) 03/10/23 12:51 RDW 13.8 % (12.1-15.1) 03/10/23 12:51 Plt Count 290 10^3/cmm (157-399) 03/10/23 12:51 MPV 10.2 fL (7.4-10.4) 03/10/23 12:51 Neut % (Auto) 70.6 % 03/10/23 12:51 Lymph % (Auto) 14.3 % 03/10/23 12:51 [place] % (Auto) 12.3 % 03/10/23 12:51 Eos % (Auto) 1.7 % 03/10/23 12:51 Baso % (Auto) 0.6 % 03/10/23 12:51 Neut # (Auto) 13.23 10^3/uL (1.8-7.7) H 03/10/23 12:51 Lymph # (Auto) 2.7 10^3/uL (0.8-4.8) 03/10/23 12:51 [place] # (Auto) 2.3 10^3/uL (0.2-0.9) H 03/10/23 12:51 Eos # (Auto) 0.3 10^3/uL (0.0-0.8) 03/10/23 12:51 Baso # (Auto) 0.1 10^3/uL (0.0-0.1) 03/10/23 12:51 Nucleated RBC % (auto) 0 % 03/10/23 12:51 Nucleated RBCs # 0.0 /100WBC 03/10/23 12:51 Sodium 132 mmol/L (136-145) L 03/10/23 12:51 Potassium 4.0 mmol/L (3.5-5.1) 03/10/23 12:51 Chloride 103 mmol/L (98-107) 03/10/23 12:51 Carbon Dioxide 16 mmol/L (22-29) L 03/10/23 12:51 Anion Gap 17.0 (5-19) 03/10/23 12:51 BUN 23 mg/dL (6-20) H 03/10/23 12:51 Creatinine 0.5 mg/dL (0.5-0.9) 03/10/23 12:51 GFR Calculation 136.6 mL/min (90-130) H 03/10/23 12:51 Glucose 107 mg/dL (65-115) 03/10/23 12:51 Calculated Osmolality 278 mOsm/kg (285-295) L 03/10/23 12:51 Calcium 9.1 mg/dL (8.5-10.5) 03/10/23 12:51 Total Bilirubin 0.5 mg/dL (0.15-1.2) 03/10/23 12:51 AST 51 U/L (0-32) H 03/10/23 12:51 ALT 26 U/L (0-33) 03/10/23 12:51 Alkaline Phosphatase 81 U/L (35-105) 03/10/23 12:51 Total Protein 7.3 g/dL (6.6-8.7) 03/10/23 12:51 Albumin 4.2 g/dL (3.5-5.2) 03/10/23 12:51 Globulin 3.1 g/dL (1.3-4.6) 03/10/23 12:51 Salicylates < 0.3 mg/dL (3-10) L 03/10/23 12:51 Acetaminophen < 5.0 ug/mL (10-30) L 03/10/23 12:51 Ethyl Alcohol < 10 mg/dL (0-10) 03/10/23 12:51 Discharge Plan Discharge Patient Disposition: Admitted As Inpatient Admit Provider: Tello Macias Clinical Impression: Methamphetamine use disorder, severe, Acute psychosis Condition: Stable Coding Level of Care Code ED Hand Hide Stretcher for Rl Alva
[2023-03-10] MEDS: haloperidol inj 5 mg/mL INJ 1 mL IM (12:07)
[2023-03-10] MEDS: LORazepam 2 mg/mL INJ 1 mL IM (12:08)
--- NOTE | 2023-03-10 12:18 | PC.PHAR ---
medications entered are from what ext med history shows has been filled recently
[2023-03-10 12:59] LABS: Basophils # 0.1 10^3/uL (0.0-0.1); Basophils % 0.6 %; Eosinophils # 0.3 10^3/uL (0.0-0.8); Eosinophils % 1.7 %; Lymphocytes # 2.7 10^3/uL (0.8-4.8); Lymphocytes % 14.3 %; Mean Corpuscular HGB Conc 35.6 g/dL (30-55); Mean Corpuscular Volume 78.7 fl (85-98); Mean Platelet Volume 10.2 fL (7.4-10.4); Monocytes # 2.3 10^3/uL (0.2-0.9); Monocytes % 12.3 %; Neutrophils # 13.23 10^3/uL (1.8-7.7); Neutrophils % 70.6 %; Nucleated Red Blood Cells % 0 %; Platelet Count 290 10^3/cmm (157-399); Red Blood Count 5.21 10^6/uL (3.85-5.65); Red Cell Distribution Width 13.8 % (12.1-15.1); White Blood Count 18.72 10^3/uL (3.29-11.43)
[2023-03-10 13:27] LABS: Albumin Level 4.2 g/dL (3.5-5.2); Alkaline Phosphatase 81 U/L (35-105); Blood Urea Nitrogen 23 mg/dL (6-20); Calcium 9.1 mg/dL (8.5-10.5); Carbon Dioxide 16 mmol/L (22-29); Chloride 103 mmol/L (98-107); Globulin 3.1 g/dL (1.3-4.6); Glomerular Filtration Rate 136.6 mL/min (90-130); Glucose 107 mg/dL (65-115); Osmolality Calculated 278 mOsm/kg (285-295); Sodium 132 mmol/L (136-145); Total Bilirubin 0.5 mg/dL (0.15-1.2); Total Protein 7.3 g/dL (6.6-8.7)
[2023-03-10 13:28] LABS: Acetaminophen < 5.0 ug/mL (10-30); Alcohol Level < 10 mg/dL (0-10); Salicylate < 0.3 mg/dL (3-10)
--- NOTE | 2023-03-10 13:28 | PC.NURSE ---
96 hr patient rights reviewed the patient in the presence of ESSENCE Child security sales manager @[phone]. Patient stated to Mechanical Product Design Engineer she did agree with 96 hr hold, and stated we would be hearing from her senior data mining analyst. HS reeducated on the 96 hr process. Patient then verbalized no other concerns or questions when asked. Patient copy left at bedside with patient.
[2023-03-10 13:30] LABS: Alanine Aminotransferase 26 U/L (0-33); Aspartate Amino Transferase 51 U/L (0-32)
[2023-03-10 14:30] VITALS: BP 106/74; PULSE 91; PULSE 96; RESP 14; RESP 17; O2SAT 97; O2SAT 98
[2023-03-10 14:34] VITALS: BP 106/84; PULSE 96; RESP 14
--- NOTE | 2023-03-10 17:57 | PC.OT ---
Unable to complete OT eval at this time (4:09 pm on 03/10/2023). Will attempt again tomorrow.
[2023-03-10 20:31] VITALS: BP 106/68; PULSE 101; RESP 15; O2SAT 94
[2023-03-11 06:00] VITALS: BP 89/57; PULSE 79; RESP 16; O2SAT 99
[2023-03-11 06:59] LABS: HCG Qualitative Urine. Negative (Negative)
[2023-03-11 07:12] LABS: Amphetamines Screen Urine Positive (Negative); Barbiturates Screen Urine Negative (Negative); Benzodiazepines Screen Urine Positive (Negative); Cocaine Screen Urine Negative (Negative); Opiate Screen Urine Negative (Negative); PCP Screen Urine Negative (Negative); THC Screen Urine Positive (Negative)
[2023-03-11 08:21] LABS: Add Urine Microscopic? YES; Bilirubin Urine Neg (Negative); Blood Urine Neg (Negative); Glucose Urine UA Norm (Normal); Ketones Urine 1+ (Negative); Leukocyte Esterase Urine Negative (Negative); Nitrate Urine Negative (Negative); Protein Urine Neg (Negative); RBC Urine 0-4 /hpf (0-2); Squamous Epithelial Cell Urine 15-25 /hpf (0-5); Urine Appearance Hazy (CLEAR); Urine Color Yellow (Yellow); Urobilinogen Urine Norm (Negative); pH Urine 5 (5-7)
[2023-03-11 08:22] LABS: Add Urine Culture? No; Bacteria Urine 1+ /hpf; Mucus Urine 1+ /hpf
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
[2023-03-11 14:00] VITALS: BP 100/64; PULSE 85; RESP 18; TEMP 36.6; O2SAT 99
[2023-03-11] MEDS: trazodone 50 mg Tablet PO (20:04)
[2023-03-11 20:14] VITALS: BP 117/55; PULSE 75; RESP 18; TEMP 36.2; O2SAT 97
--- NOTE | 2023-03-12 06:34 | PC.NURSE ---
pt resting resp 16
[2023-03-12] MEDS: nicotine 4 mg lozenge MUCOUS MEM ×2 (11:00→19:19)
[2023-03-12] MEDS: OLANZapine 10 mg TABLET 15 MG PO ×2 (11:46→20:43)
[2023-03-12] MEDS: gabapentin 300 mg Capsule PO (11:51)
--- NOTE | 2023-03-12 12:08 | P.NPUPN_ITS ---
Subjective NPU Subjective: Patient presented today continuing to be limited in her interactions with this marine underwriter but with reports of improvement of engagement with some members of staff. In the process she was able to identify her previous medications and we discussed the risk benefits and alternatives of restarting them at appropriate doses and she understood agreed to proceed as is documented in this note. She was encouraged to be more engaging with treatment team and we discussed needing to make a decision about extending her hold by Wednesday as her hold ends on 03/16/2023. Mental Status Exam MSE Comments: This is a slender but well-nourished, well-developed appearing white female looking older than her stated age with limited grooming and absent eye contact. Absent dentition. No abnormal movements except for significant psychomotor agitation.? Uncooperative with exam in mild to moderate distress.? Speech was essentially absent with decreased volume.? Mood described not described, affect irritable.? Thought process linear at best.? Thought content: Patient did not answer questions but patient demonstrated no aggression towards herself or others, there were no delusions reported and no interaction to allow for assessment of delusions or internal preoccupation.? Attention and concentration were impaired and memory was unreliable but none were formally tested.? She is alert and appeared to be oriented to self.? Insight, judgment and impulse control are impaired. Vitals/I&O/Wt Last Vital Signs Temp 97.2 F L 03/11/23 20:14 Pulse 75 03/11/23 20:14 Resp 18 03/11/23 20:14 BP 117/55 03/11/23 20:14 Pulse Ox 97 03/11/23 20:14 O2 Del Method Room Air 03/11/23 20:14 Data NPU 03/10/23 12:51 03/10/23 12:51 A&P Assessment and plan (1) Depression: (2) Acute psychosis: (3) Methamphetamine use disorder, severe: Plan This is a 42-year-old white female with a long history of mental health and addiction issues presents with psychosis likely triggered by methamphetamine use. 1. Restarted her previous medication regimen including Remeron, Zyprexa and Neurontin. 2. Continue every 15 minute checks for safety. 3. Encourage individual, group and milieu therapies. 4. Encourage sober living treatment after discharge at the highest level of care to which she is willing to commit. Involuntary Hold Information 96 Hour Hold: 96 Hour Involuntary Admission: Yes 96 Hour Hold Ending Date: 02/12/23 96 Hour Hold Ending Time: 00:01 Attestations NPU Medical Necessity Statement*: Inpatient psychiatric hospitalization is medically necessary and the clinically appropriate intervention at this time. We will monitor/initiate medications and make changes as indicated. She will be in the hospital for over 2 midnights. Likely length of stay 7 to 10 days which may involve initiating a 21-day hold. Coding Level of Care Code Acute Code for Chg Fwd Diagnoses Depression F32.A Acute psychosis F23 Methamphetamine use disorder, severe F15.20
[2023-03-12 14:00] VITALS: BP 101/66; PULSE 85; RESP 20; TEMP 37; O2SAT 99
[2023-03-12 19:37] VITALS: BP 99/66; PULSE 82; RESP 16; TEMP 37; O2SAT 98
[2023-03-12] MEDS: trazodone 50 mg Tablet PO (20:44)
[2023-03-12] MEDS: mirtazapine 15 mg Tablet PO (20:45)
[2023-03-13 06:00] VITALS: RESP 16
[2023-03-13] MEDS: gabapentin 300 mg Capsule PO ×2 (08:15→17:07)
--- NOTE | 2023-03-13 10:10 | P.NPUPN_ITS ---
Subjective NPU Subjective: Patient presented today reporting that she is feeling better now and wanting to discharge. We had a spirited conversation about her previous hospitalizations and how they were quick and she did not commit to any options that advanced her recovery. She was identifying a plan to do outpatient rehab but speaking to it like somehow outpatient rehab would prevent her from using in a guaranteed sen.se we discussed the importance of her doing something differently this time and that we would decide about continuing hold on Wednesday. Mental Status Exam MSE Comments: This is a slender but well-nourished, well-developed appearing white female looking older than her stated age with limited grooming and absent eye contact. Absent dentition. No abnormal movements except for moderate psychomotor a gitation.? More cooperative with exam in mild to moderate distress.? Speech was more spontaneous with more normal rate and decreased volume.? Mood described as fine, affect irritable.? Thought process linear.? Thought content: Patient denied suicidal or homicidal ideation, there were no delusions reported or noted, she denied any auditory or visual hallucinations.? Attention and concentration were improving but memory was unreliable and none were formally tested.? She is alert and oriented to person and place.? Insight, judgment and impulse control are impaired, but improving. Vitals/I&O/Wt Last Vital Signs Temp 98.6 F 03/12/23 19:37 Pulse 82 03/12/23 19:37 Resp 16 03/13/23 06:00 BP 99/66 03/12/23 19:37 Pulse Ox 98 03/12/23 19:37 O2 Del Method Room Air 03/12/23 19:37 Data NPU 03/10/23 12:51 03/10/23 12:51 A&P Assessment and plan (1) Depression: (2) Acute psychosis: (3) Methamphetamine use disorder, severe: Plan This is a 42-year-old white female with a long history of mental health and addiction issues presents with psychosis likely triggered by methamphetamine use. 1. Restarted her previous medication regimen including Remeron, Zyprexa and Neurontin. 2. Continue every 15 minute checks for safety. 3. Encourage individual, group and milieu therapies. 4. Encourage sober living treatment after discharge at the highest level of care to which she is willing to commit. Involuntary Hold Information 96 Hour Hold: 96 Hour Involuntary Admission: Yes 96 Hour Hold Ending Date: 02/12/23 96 Hour Hold Ending Time: 00:01 Attestations NPU Medical Necessity Statement*: Inpatient psychiatric hospitalization is medically necessary and the clinically appropriate intervention at this time. We will monitor/initiate medications and make changes as indicated. She will be in the hospital for over 2 midnights. Likely length of stay 7 to 10 days which may involve initiating a 21-day hold. Coding Level of Care Code Acute Code for [facility] Fwd Diagnoses Depression F32.A Acute psychosis F23 Methamphetamine use disorder, severe F15.20
[2023-03-13 13:42] VITALS: BP 97/61; PULSE 100; RESP 20; TEMP 36.6; O2SAT 99
[2023-03-13] MEDS: nicotine 2 mg Gum BUCCAL (15:55)
[2023-03-13] MEDS: nicotine 4 mg lozenge MUCOUS MEM ×2 (18:07→20:05)
[2023-03-13] MEDS: docusate sodium 100 mg Capsule 200 MG PO (19:09)
[2023-03-13] MEDS: mirtazapine 15 mg Tablet PO (20:20)
[2023-03-13] MEDS: OLANZapine 10 mg TABLET 15 MG PO (20:20)
[2023-03-13] MEDS: acetaminophen 325 mg Tablet 650 MG PO (20:20)
[2023-03-13] MEDS: magnesium hydroxide 30 mL UDC PO (20:21)
[2023-03-13 20:31] VITALS: BP 116/82; PULSE 98; RESP 18; TEMP 36.4; O2SAT 99
--- NOTE | 2023-03-13 21:19 | PC.NURSE ---
ASSESSMENT COMPLETED IN ROOM,. PT DENIES PAIN. DENIES SI/HI AND AVH AT THIS TIME. PT STATES SHE NEEDS MILK OF MAG DUE TO NOT HAVING A BM FOR [address] CAMPBELL NOTIFIED AND NEW ORDER RECEIVED FOR MILK OF MAG 30 MLS DAILY PRN CONSTIPATION. FIRST DOSE WAS ADMINISTERED AND PT WAS VERY PLEASED. PT SPEAKS EXCESSIVELY AND VERY ANIMATED. PT STATES SHE IS HAVING INCREASED DEPRESSION AND NEEDS AN ANTIDEPRESANT. PT WAS EDUCATED TO SPEAK TO DR. CAMPBELL ABOUT STARTING AN ANTI DEPRESSANT IN THE AM. PT STATES SHE WILL DEFINATELY ASK.
[2023-03-14 06:00] VITALS: RESP 16
[2023-03-14] MEDS: gabapentin 300 mg Capsule PO ×2 (09:53→17:07)
--- NOTE | 2023-03-14 13:13 | PC.NURSE ---
Patient complained of stomach pain and no bm for 6 days. This RN notified Dr. Weeks. No new orders at this time.
--- NOTE | 2023-03-14 13:49 | W.PM.NPUPNS ---
Subjective NPU Subjective: Patient presented today reporting that she is doing better and appearing better on observation. Staff reporting much less irritability, less isolation and more engagement. Discussed the challenges of her addiction and lack of willingness to to have greater insight leaves the nor open for her use to continue. We discussed the treatment team working on her outpatient plan but feeling like she needs inpatient rehab. We discussed that decision on discharge versus initiating a 21-day hold will be made tomorrow. Mental Status Exam MSE Comments: This is a slender but well-nourished, well-developed appearing white female looking older than her stated age with limited grooming and absent eye contact. Absent dentition. No abnormal movements.? More cooperative with exam in mild distress.? Speech was more spontaneous with more normal rate and volume.? Mood described as fine, affect more euthymic.? Thought process linear.? Thought content: Patient denied suicidal or homicidal ideation, there were no delusions reported or noted, she denied any auditory or visual hallucinations.? Attention and concentration were improving but memory was unreliable and none were formally tested.? She is alert and oriented x3.? Insight poor judgment limited and impulse control is impaired, but improving. Vitals/I&O/Wt Last Vital Signs Temp 97.6 F 03/13/23 20:31 Pulse 98 03/13/23 20:31 Resp 16 03/14/23 06:00 BP 116/82 03/13/23 20:31 Pulse Ox 99 03/13/23 20:31 O2 Del Method Room Air 03/13/23 20:31 Weight last 48 hrs Weight 59.194 kg Data NPU 03/10/23 12:51 03/10/23 12:51 A&P Assessment and plan (1) Depression: (2) Acute psychosis: (3) Methamphetamine use disorder, severe: Plan This is a 42-year-old white female with a long history of mental health and addiction issues presents with psychosis likely triggered by methamphetamine use. 1. Restarted her previous medication regimen including Remeron, Zyprexa and Neurontin. 2. Continue every 15 minute checks for safety. 3. Encourage individual, group and milieu therapies. 4. Encourage sober living treatment after discharge at the highest level of care to which she is willing to commit. Involuntary Hold Information 96 Hour Hold: 96 Hour Involuntary Admission: Yes 96 Hour Hold Ending Date: 02/12/23 96 Hour Hold Ending Time: 00:01 Attestations NPU Medical Necessity Statement*: Inpatient psychiatric hospitalization is medically necessary and the clinically appropriate intervention at this time. We will monitor/initiate medications and make changes as indicated. Likely length of stay 1-3 days, but it could be longer which would involve initiating a 21-day hold. Coding Level of Care Code Acute Code for g Fwd Diagnoses Depression F32.A Acute psychosis F23 Methamphetamine use disorder, severe F15.20
[2023-03-14] MEDS: acetaminophen 325 mg Tablet 650 MG PO (13:56)
[2023-03-14 14:00] VITALS: BP 126/83; PULSE 100; RESP 17; TEMP 36.5; O2SAT 99
[2023-03-14] MEDS: magnesium hydroxide 30 mL UDC PO (14:23)
[2023-03-14] MEDS: nicotine 4 mg lozenge MUCOUS MEM ×2 (15:02→17:14)
[2023-03-14] MEDS: loratadine 10 mg Tablet PO (15:28)
[2023-03-14] MEDS: psyllium powder Pkt 1 PACKET PO (19:20)
[2023-03-14 20:09] VITALS: BP 124/78; PULSE 96; RESP 18; TEMP 36.6; O2SAT 96
[2023-03-14] MEDS: mirtazapine 15 mg Tablet PO (20:24)
[2023-03-14] MEDS: trazodone 50 mg Tablet PO (20:24)
[2023-03-14] MEDS: OLANZapine 10 mg TABLET 15 MG PO (20:24)
[2023-03-15 06:00] VITALS: RESP 16
[2023-03-15] MEDS: gabapentin 300 mg Capsule PO ×2 (08:57→17:17)
[2023-03-15] MEDS: loratadine 10 mg Tablet PO (08:57)
[2023-03-15] MEDS: magnesium hydroxide 30 mL UDC PO (10:11)
[2023-03-15] MEDS: nicotine 4 mg lozenge MUCOUS MEM ×4 (10:11→18:27)
--- NOTE | 2023-03-15 11:43 | W.PM.NPUPNS ---
Subjective NPU Subjective: Patient presented today reporting that she is doing better. Continue to report plan for outpatient rehab but we continue to recommend inpatient. We discussed the treatment team working on her discharge plan likely tomorrow as we have decided against filing for a 21-day hold. Mental Status Exam MSE Comments: This is a slender but well-nourished, well-developed appearing white female looking older than her stated age with limited grooming and absent eye contact. Absent dentition. No abnormal movements.? More cooperative with exam in mild distress.? Speech was more spontaneous with more normal rate and volume.? Mood described as fine, affect more euthymic.? Thought process linear.? Thought content: Patient denied suicidal or homicidal ideation, there were no delusions reported or noted, she denied any auditory or visual hallucinations.? Attention and concentration were improving but memory was unreliable and none were formally tested.? She is alert and oriented x3.? Insight poor judgment limited and impulse control is impaired, but improving. Vitals/I&O/Wt Last Vital Signs Temp 97.9 F 03/14/23 20:09 Pulse 96 03/14/23 20:09 Resp 16 03/15/23 06:00 BP 124/78 03/14/23 20:09 Pulse Ox 96 03/14/23 20:09 O2 Del Method Room Air 03/14/23 20:09 Weight last 48 hrs Weight 59.194 kg Data NPU 03/10/23 12:51 03/10/23 12:51 A&P Assessment and plan (1) Depression: (2) Acute psychosis: (3) Methamphetamine use disorder, severe: Plan This is a 42-year-old white female with a long history of mental health and addiction issues presents with psychosis likely triggered by methamphetamine use. 1. Restarted her previous medication regimen including Remeron, Zyprexa and Neurontin. 2. Continue every 15 minute checks for safety. 3. Encourage individual, group and milieu therapies. 4. Encourage sober living treatment after discharge at the highest level of care to which she is willing to commit. Involuntary Hold Information 96 Hour Hold: 96 Hour Involuntary Admission: Yes 96 Hour Hold Ending Date: 02/12/23 96 Hour Hold Ending Time: 00:01 Attestations NPU Medical Necessity Statement*: Inpatient psychiatric hospitalization is medically necessary and the clinically appropriate intervention at this time. We will monitor/initiate medications and make changes as indicated. Likely length of stay 1-2 days. Coding Level of Care Code Acute Code for Chg Fwd Diagnoses Depression F32.A Acute psychosis F23 Methamphetamine use disorder, severe F15.20
[2023-03-15 13:18] VITALS: BP 113/78; PULSE 101; RESP 16; TEMP 37.1; O2SAT 100
[2023-03-15] MEDS: ibuprofen 600 mg Tablet PO (14:22)
[2023-03-15] MEDS: mirtazapine 15 mg Tablet PO (20:06)
[2023-03-15] MEDS: OLANZapine 10 mg TABLET 15 MG PO (20:06)
[2023-03-15] MEDS: trazodone 50 mg Tablet PO (20:06)
[2023-03-15] MEDS: psyllium powder Pkt 1 PACKET PO (20:16)
[2023-03-15 20:29] VITALS: BP 100/67; PULSE 92; RESP 18; O2SAT 98
[2023-03-16 06:00] VITALS: BP 103/63; PULSE 104; RESP 16; TEMP 36.9; O2SAT 98
[2023-03-16] MEDS: loratadine 10 mg Tablet PO (08:16)
[2023-03-16] MEDS: gabapentin 300 mg Capsule PO (08:16)
[2023-03-16] MEDS: nicotine 4 mg lozenge MUCOUS MEM ×2 (09:45→13:09)
[2023-03-16] MEDS: ibuprofen 600 mg Tablet PO (10:11)
[2023-03-16] MEDS: hyDROXYzine 25 mg Capsule 50 MG PO (10:21)
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
[2023-03-16] MEDS: acetaminophen 325 mg Tablet 650 MG PO (13:27)
[2023-03-16 13:28] VITALS: BP 118/74; PULSE 89; RESP 16; TEMP 36.7; O2SAT 98
[2023-03-16 13:36] VITALS: BP 118/74; PULSE 89; RESP 16; TEMP 36.7; O2SAT 98
--- NOTE | 2023-03-16 13:51 | DCPLANNER ---
IMM was printed and given and explained to pt and copy placed in file.
== END 2023-03-16 14:23 | disposition home or self-care (01) | DRG 885 ==
LOC: ER 12:58 → NP 13:56
PROVIDERS: Psychiatry & Neurology Psychiatry; Admitting Provider Psychiatry & Neurology Psychiatry; Emergency Provider Emergency Medicine; PCP Nurse Practitioner; Visit Provider Psychiatry & Neurology Psychiatry
DX: F20.9 Schizophrenia, unspecified (principal); F15.10 Other stimulant abuse, uncomplicated; Z91.148 Patient's other noncompliance with medication regimen for other reason
CPT/HCPCS: 36415; 80053; 80306; 80307; 81001; 81025; 85025; 96372; 97150; 97165; 99238; 99285; J1630; J2060

== ENCOUNTER 2023-04-11 22:30 | Emergency (ER) | payer MEDICARE, SELFPAY ==
[2023-04-11 22:31] VITALS: BP 119/79; PULSE 106; RESP 18; TEMP 36.8; O2SAT 96; BMI 23.1
--- NOTE | 2023-04-11 22:38 | XRR_ITS ---
PROCEDURE INFORMATION: Exam: XR Chest Exam date and time: 04/11/2023 10:43 PM Age: 42 years old Clinical indication: Patient HX: Tachycardia; Panic attack; Additional info: Chest pain TECHNIQUE: Imaging protocol: Radiologic exam of the chest. Views: 1 view. COMPARISON: CR XR chest 1V [id number] 02/13/2018 12:52 PM FINDINGS: Lungs: Normal lung volumes. No interstitial or air space opacities seen. Pleural spaces: No pleural effusion. No pneumothorax. Heart/Mediastinum: Normal heart size. Normal mediastinum. Midline trachea. Bones/joints: No acute osseous abnormalities seen. Soft tissues: Multiple external leads are seen overlying the chest, limiting assessment. XR/XR chest 1V portable [id number] IMPRESSION: No acute cardiopulmonary disease seen on the chest radiograph.
--- NOTE | 2023-04-11 22:38 | ECG_ITS ---
[facility] Test Date: 2023-04-11 Pat Name: Ellie Adler Department: Room: Gender: Female [employer]ade [employer]inder: : 1980 Requested By: Brigido Giang Order Number: [id number] Cathie MD: Randolph Peña M.D. Measurements Intervals [place] Rate: 100 P: 66 DC: 157 QRS: 75 QRSD: 78 T: 55 QT: 347 QTc: 449 Interpretive Statements SINUS TACHYCARDIA POSSIBLE LEFT ATRIAL ENLARGEMENT [-0.1mV P-WAVE IN V1/V2] Compared to ECG 08/06/2022 16:50:40 No significant changes Electronically Signed On 04-12-2023 8:24:11 CDT by Randolph Peña M.D. [id number]
[2023-04-11 22:45] VITALS: O2SAT 96
[2023-04-11] MEDS: sodium chloride 0.9% 1,000 ML 999 ML IV (22:57)
[2023-04-11] MEDS: LORazepam 2 mg/mL INJ 1 mL IVP (22:58)
[2023-04-11] MEDS: haloperidol inj 5 mg/mL INJ 1 mL 3 MG IVP (23:00)
[2023-04-11 23:19] LABS: Basophils # 0.1 10^3/uL (0.0-0.1); Basophils % 0.3 %; Eosinophils % 0.1 %; Lymphocytes # 1.8 10^3/uL (0.8-4.8); Lymphocytes % 6.2 %; Mean Corpuscular HGB Conc 32.2 g/dL (30-55); Mean Corpuscular Hemoglobin 27.4 pg (27-33); Mean Corpuscular Volume 85.2 fl (85-98); Mean Platelet Volume 9.7 fL (7.4-10.4); Monocytes # 1.2 10^3/uL (0.2-0.9); Monocytes % 4.2 %; Neutrophils # 25.48 10^3/uL (1.8-7.7); Neutrophils % 88.7 %; Nucleated Red Blood Cells % 0 %; Platelet Count 434 10^3/cmm (157-399); Red Cell Distribution Width 14.5 % (12.1-15.1); White Blood Count 28.75 10^3/uL (3.29-11.43)
--- NOTE | 2023-04-11 23:27 | ED_ITS ---
HPI - Chest Pain General: Chief Complaint: Chest Pain Stated Complaint: chest pain/substance abuse Time Seen by Provider: 04/11/23 22:42 History of Present Illness: 42-year-old female complaining of chest pain. She states I need a trach in my heart or I am going to . She keeps asking if she can see my daddy before I . She seems to be talking to her father in the room. He is clearly not here. She will not further describe or delineate her chest discomfort or other symptoms for me. MD complaint: chest pain Review of Systems General: Reports: ROS unobtainable due to mental status PFS ED PFSH: Medical History Methamphetamine abuse No significant past medical history Surgical History No significant past surgical history Social History Smoking and tobacco status: unknown if ever smoked Substance/Drug Use: current Female Reproductive History: Date of last menstrual period: 04/11/23 Physical Exam Const: GENERAL APPEARANCE: in distress, anxious, disheveled and appears older than stated age; not ill appearing and not frail appearing HENMT: COMMON NORMALS: normocephalic, atraumatic and Normal external nose present HEAD & SCALP: normocephalic and atraumatic FACE & SINUS: face symmetric NOSE: Normal external nose present Eye: COMMON NORMALS: Equal, round and reactive pupils present and EOMs intact bilaterally PUPIL: Yes Equal, round and reactive pupils present and Yes Dilated pupils Neck/C-Spine: COMMON NORMALS: supple GENERAL: Yes trachea midline Chest: CHEST: Yes Symmetrical chest wall rise Resp: COMMON NORMALS: clear to auscultation bilaterally EFFORT & INSPECTION: Yes tachypneic AUSCULTATION: clear to auscultation bilaterally Cardio: COMMON NORMALS: regular rhythm RATE: tachycardic RHYTHM: regular rhythm GI: COMMON NORMALS: Normal to inspection, nondistended, normoactive bowel sounds present Extremity: COMMON NORMALS: no pedal edema Course Vital Signs: Vital signs: Vital Signs Temperature 98.2 F 04/11/23 22:31 Pulse Rate 86 04/12/23 02:00 Respiratory Rate 15 04/12/23 03:45 Blood Pressure 125/75 04/12/23 05:00 Pulse Oximetry 98 04/12/23 04:00 Oxygen Delivery Me thod Nasal Cannula 04/12/23 02:00 Oxygen Flow Rate 2 04/12/23 00:15 MDM - Chest Pain Medical Decision Making 42-year-old female who is actively hallucinating. Her vital signs are stable. EKG shows mild tachycardia of 100 with normal intervals. No acute ST wave changes. She is afebrile. White blood cell count is 29. Hemoglobin is 15. Other laboratory including troponin urine drug screen is positive for marijuana and amphetamine. She is resting comfortably after administration of IV Haldol and Ativan. Patient still resting comfortably. Vital signs of been quite stable. She will be discharged to the custody of a sober adult upon waking. Lab Data 04/11/23 22:58 04/11/23 22:58 Laboratory Results WBC 28.75 10^3/uL (3.29-11.43) H 04/11/23 22:58 RBC 5.40 10^6/uL (3.85-5.65) 04/11/23 22:58 Hgb 14.80 g/dL (11.27-16.99) 04/11/23 22:58 Hct 46.0 % (36-47) 04/11/23 22:58 MCV 85.2 fl (85-98) 04/11/23 22:58 MCH 27.4 pg (27-33) 04/11/23 22:58 MCHC 32.2 g/dL (30-55) 04/11/23 22:58 RDW 14.5 % (12.1-15.1) 04/11/23 22:58 Plt Count 434 10^3/cmm (157-399) H 04/11/23 22:58 MPV 9.7 fL (7.4-10.4) 04/11/23 22:58 Neut % (Auto) 88.7 % 04/11/23 22:58 Lymph % (Auto) 6.2 % 04/11/23 22:58 [place] % (Auto) 4.2 % 04/11/23 22:58 Eos % (Auto) 0.1 % 04/11/23 22:58 Baso % (Auto) 0.3 % 04/11/23 22:58 Neut # (Auto) 25.48 10^3/uL (1.8-7.7) H 04/11/23 22:58 Lymph # (Auto) 1.8 10^3/uL (0.8-4.8) 04/11/23 22:58 [place] # (Auto) 1.2 10^3/uL (0.2-0.9) H 04/11/23 22:58 Eos # (Auto) 0.0 10^3/uL (0.0-0.8) 04/11/23 22:58 Baso # (Auto) 0.1 10^3/uL (0.0-0.1) 04/11/23 22:58 Nucleated RBC % (auto) 0 % 04/11/23 22:58 Nucleated RBCs # 0.0 /100WBC 04/11/23 22:58 Sodium 137 mmol/L (136-145) 04/11/23 22:58 Potassium 3.8 mmol/L (3.5-5.1) 04/11/23 22:58 Chloride 101 mmol/L (98-107) 04/11/23 22:58 Carbon Dioxide 21 mmol/L (22-29) L 04/11/23 22:58 Anion Gap 18.8 (5-19) 04/11/23 22:58 BUN 19 mg/dL (6-20) 04/11/23 22:58 Creatinine 0.6 mg/dL (0.5-0.9) 04/11/23 22:58 GFR Calculation 110.7 mL/min (90-130) 04/11/23 22:58 Glucose 112 mg/dL (65-115) 04/11/23 22:58 Calculated Osmolality 287 mOsm/kg (285-295) 04/11/23 22:58 Calcium 9.9 mg/dL (8.5-10.5) 04/11/23 22:58 Total Bilirubin 0.6 mg/dL (0.15-1.2) 04/11/23 22:58 AST 20 U/L (0-32) 04/11/23 22:58 ALT 27 U/L (0-33) 04/11/23 22:58 Alkaline Phosphatase 116 U/L (35-105) H 04/11/23 22:58 Troponin T Baseline < 6 ng/L (0-10) 04/11/23 22:58 Total Protein 8.0 g/dL (6.6-8.7) 04/11/23 22:58 Albumin 5.1 g/dL (3.5-5.2) 04/11/23 22:58 Globulin 2.9 g/dL (1.3-4.6) 04/11/23 22:58 HCG, Qual Negative (Negative) 04/11/23 13:49 Urine Color Yellow (Yellow) 04/11/23 13:49 Urine Appearance Cloudy (CLEAR) A 04/11/23 13:49 Urine pH 5 (5-7) 04/11/23 13:49 Ur Specific [place] 1.030 (1.005-1.030) 04/11/23 13:49 Urine Protein Trace (Negative) 04/11/23 13:49 Urine Glucose (UA) Norm (Normal) 04/11/23 13:49 Urine Ketones 3+ (Negative) H 04/11/23 13:49 Urine Blood 2+ (Negative) H 04/11/23 13:49 Urine Nitrate Negative (Negative) 04/11/23 13:49 Urine Bilirubin 1+ (Negative) H 04/11/23 13:49 Urine Urobilinogen 1 mg/dL (Negative) H 04/11/23 13:49 Ur Leukocyte Esterase Trace (Negative) H 04/11/23 13:49 Urine RBC 0-4 /hpf (0-2) H 04/11/23 13:49 Urine WBC Rare /hpf (0-5) 04/11/23 13:49 Ur Squamous Epith Cells 0-4 /hpf (0-5) H 04/11/23 13:49 Amorphous Sediment 3+ /hpf 04/11/23 13:49 Urine Bacteria None /hpf (NONE) 04/11/23 13:49 Salicylates < 0.3 mg/dL (3-10) L 04/11/23 22:58 Urine Opiates Screen Negative ng/mL (Negative) 04/11/23 13:49 Acetaminophen < 5.0 ug/mL (10-30) L 04/11/23 22:58 Ur Barbiturates Screen Negative ng/mL (Negative) 04/11/23 13:49 Ur Phencyclidine Scrn Negative ng/mL (Negative) 04/11/23 13:49 Ur Amphetamines Screen Positive ng/mL (Negative) H 04/11/23 13:49 U Benzodiazepines Scrn Positive ng/mL (Negative) H 04/11/23 13:49 Urine Cocaine Screen Negative ng/mL (Negative) 04/11/23 13:49 U Marijuana (THC) Screen Positive ng/mL (Negative) H 04/11/23 13:49 Ethyl Alcohol < 10 mg/dL (0-10) 04/11/23 22:58 All radiology interpretation(s) finalized by discharge Discharge Plan Discharge Patient Disposition: Home Clinical Impression: Drug psychosis, with delusions Condition: Stable Prescriptions: No Action hydroxyzine pamoate 25 mg Capsule 50 mg PO Q6H PRN (Reason: Anxiety) 30 Days Qty: 120 1RF mirtazapine 30 mg tablet 30 mg PO BEDTIME 30 Days Qty: 30 1RF olanzapine 15 mg tablet 15 mg PO BEDTIME 30 Days Qty: 30 1RF trazodone 50 mg Tablet 50 mg PO BEDTIME PRN (Reason: Sleep) 30 Days Qty: 30 1RF gabapentin 300 mg capsule 300 mg PO BID 30 Days Qty: 60 1RF Discharge Orders: Discharge ED (Routine); Ordered 04/12/23 Ordered By: Ryan Alexander Referrals: Cathy Modi FURNITURE ASSEMBLER [Primary Care Provider] - 1-3 days Patient Instructions: Methamphetamine Use Disorder (ED), Opioid Safety Coding Level of Care Code ED [facility] Manager [facility]
[2023-04-11 23:30] VITALS: BP 121/76; PULSE 86; RESP 17; O2SAT 99
[2023-04-11 23:39] LABS: Troponin(5th) Baseline < 6 ng/L (0-10)
[2023-04-11 23:45] LABS: Alanine Aminotransferase 27 U/L (0-33); Albumin Level 5.1 g/dL (3.5-5.2); Alkaline Phosphatase 116 U/L (35-105); Anion Gap 18.8 (5-19); Aspartate Amino Transferase 20 U/L (0-32); Blood Urea Nitrogen 19 mg/dL (6-20); Calcium 9.9 mg/dL (8.5-10.5); Carbon Dioxide 21 mmol/L (22-29); Chloride 101 mmol/L (98-107); Creatinine Clr Calc Pharmacy 112.7706; Globulin 2.9 g/dL (1.3-4.6); Glomerular Filtration Rate 110.7 mL/min (90-130); Glucose 112 mg/dL (65-115); Osmolality Calculated 287 mOsm/kg (285-295); Potassium 3.8 mmol/L (3.5-5.1); Sodium 137 mmol/L (136-145); Total Bilirubin 0.6 mg/dL (0.15-1.2)
[2023-04-11 23:51] LABS: Acetaminophen < 5.0 ug/mL (10-30); Alcohol Level < 10 mg/dL (0-10); Salicylate < 0.3 mg/dL (3-10)
[2023-04-12] VITALS (9 sets, daily range): BP systolic 100–126; BP diastolic 61–87; PULSE 74–90; RESP 14–18; O2SAT 96–100
[2023-04-12 00:06] LABS: Add Urine Microscopic? YES; Amorphous Sediment Urine 3+ /hpf; Amphetamines Screen Urine Positive (Negative); Barbiturates Screen Urine Negative (Negative); Benzodiazepines Screen Urine Positive (Negative); Bilirubin Urine 1+ (Negative); Blood Urine 2+ (Negative); Cocaine Screen Urine Negative (Negative); Glucose Urine UA Norm (Normal); HCG Qualitative Urine. Negative (Negative); Ketones Urine 3+ (Negative); Leukocyte Esterase Urine Trace (Negative); Nitrate Urine Negative (Negative); Opiate Screen Urine Negative (Negative); PCP Screen Urine Negative (Negative); Protein Urine Trace (Negative); RBC Urine 0-4 /hpf (0-2); Squamous Epithelial Cell Urine 0-4 /hpf (0-5); THC Screen Urine Positive (Negative); Urine Appearance Cloudy (CLEAR); Urine Color Yellow (Yellow); Urobilinogen Urine 1 mg/dL (Negative); WBC Urine RARE /hpf (0-5); pH Urine 5 (5-7)
== END 2023-04-12 06:57 | disposition home or self-care (01) ==
PROVIDERS: Emergency Medicine; Emergency Provider Emergency Medicine; PCP Nurse Practitioner
DX: F19.950 Other psychoactive substance use, unspecified with psychoactive substance-induced psychotic disorder with delusions (principal)
CPT/HCPCS: 36415; 71045; 80053; 80306; 80307; 81001; 81003; 81025; 84484; 85025; 93005; 96374; 96375; 99285; J1630; J2060; J7030

== ENCOUNTER 2023-08-22 18:33 | Inpatient (IN) | payer MEDICARE, MEDICAID, SELFPAY ==
[2023-08-22] VITALS (18 sets, daily range): BP systolic 93–137; BP diastolic 58–105; PULSE 84–121; RESP 16–27; O2SAT 94–98; BMI 23.3
--- NOTE | 2023-08-22 18:42 | XRR_ITS ---
PROCEDURE INFORMATION: Exam: XR Right Finger(s) Exam date and time: 08/22/2023 7:04 PM Age: 43 years old Clinical indication: Injury or trauma; Other: Puncture; Right; Ring finger; Patient HX: Patient states bit on tip of 4th digit by an animal. ; Additional info: Trauma/ 4th finger TECHNIQUE: Imaging protocol: Radiologic exam of the right fingers. Views: Minimum 2 views. COMPARISON: No relevant prior studies available. FINDINGS: Bones/joints: Normal. Soft tissues: Likely chronic punctate soft tissue calcification over the dorsum of the 4th distal interphalangeal joint versus a foreign body with a soft tissue defect, please correlate clinically. XR/XR finger RT min 2V 13809 IMPRESSION: 1. Likely chronic punctate soft tissue calcification over the dorsum of the 4th distal interphalangeal joint versus a foreign body with a soft tissue defect, please correlate clinically. 2. Negative for fracture or dislocation
--- NOTE | 2023-08-22 18:43 | ED.C_ITS ---
HPI - Psych 2 General: Chief Complaint: Psychiatric Symptoms Stated Complaint: PSYCH EVAL Time Seen by Provider: 08/22/23 18:42 History of Present Illness: 43-year-old female presents to the emerg ency department via EMS personnel accompanied by [facility] deputy [place]. Patient is actively hallucinating and hearing voices and with acute psychosis. She does appear exhibiting effects of a stimulant, but denies methamphetamine use. She states she also has an injury to her hand, right fourth digit, but does not want it touched. She states that she also smokes cigarettes and marijuana. She appears very anxious and jittery. Associated symptoms: Reports auditory hallucinations and visual hallucinations; Deny homicidal ideation or suicidal ideation Review of Systems 2 General: Reports: 10 or more systems reviewed and unremarkable except in HPI and below Skin/Breast: Reports: other (Laceration right fourth digit palmar aspect) Psych: Reports: visual hallucinations and auditory hallucinations; Denies: suicidal ideation or homicidal ideation [facility] ED 2 PFSH: Medical History Methamphetamine abuse No significant past medical history Surgical History No significant past surgical history Social History Smoking and tobacco/nicotine status: unknown if used tobacco/nicotine Substance/Drug Use: current Physical Exam 2 Narrative: EXAM NARRATIVE: Constitutional: the patient appears well nourished and of normal development. Vital signs as documented. No acute distress at present. Alert and oriented-to person, place, time and situation. Head, eyes, ears, nose, mouth, throat: Normocephalic, atraumatic. Pupils-equal, round, reactive to light. No scleral icterus. Normal-appearing external ears. Normal appearing nasal turbinates, no drainage. No obvious oral lesions, posterior oropharynx without erythema or exudates. Neck: Supple, trachea is midline, no lymphadenopathy, no jugular venous distension, thyromegaly, or carotid bruits. Carotid upstrokes are brisk bilaterally. Lungs: clear to auscultation to all lung sheppard. Symmetrical rise and fall of chest, no obvious signs of increased work of breathing at present. Cardiac: Regular rate and rhythm, positive S1, S2. No murmurs, rubs or gallops that I can appreciate Abdomen: Soft, non-tender to palpation, normal active bowel sounds to all quadrants. No palpable masses, no organomegaly and abdominal bruits. Extremities: 2+ pulses in the upper extremities that are equal bilaterally, 2+ pulses in the lower extremities that are equal bilaterally. Non-edematous. Moves all extremities well, sensation to all extremities are noted. 2 cm skin avulsion to the palmar aspect of the right fourth digit. Skin: Warm, dry, intact. Laceration to the right fourth digit as noted. Psych: Agitated, psychotic, Hypermobile, anxious, fidgety, Course 2 ED course: pt has continued to refuse to allow repair of her injured finger. I will provide dressing and antibiotics. Vital Signs: Vital signs: Vital Signs Pulse Rate 89 08/22/23 18:42 Blood Pressure 109/82 08/22/23 18:42 Pulse Oximetry 96 08/22/23 18:42 Oxygen Delivery Me thod Room Air 08/22/23 18:42 MDM - Psych Medical Decision Making Physical exam completed and documented, I will obtain laboratory evaluation for psychiatric medical clearance and provide wound care and laceration repair. I will obtain a x-ray of her finger to evaluate for bony involvement. I have contacted Dr. Macias and he as accepted the pt for placement in [facility]. Medical Records I reviewed the patient's medical records. Lab Data I reviewed the patient's lab results. 08/22/23 19:43 08/22/23 19:43 Radiology Impressions Finger X-Ray 08/22/23 18:42 IMPRESSION: 1. Likely chronic punctate soft tissue calcification over the dorsum of the 4th distal interphalangeal joint versus a foreign body with a soft tissue defect, please correlate clinically. 2. Negative for fracture or dislocation Laboratory Results WBC 24.69 10^3/uL (3.29-11.43) H 08/22/23 19:43 RBC 5.04 10^6/uL (3.85-5.65) 08/22/23 19:43 Hgb 13.60 g/dL (11.27-16.99) 08/22/23 19:43 Hct 41.9 % (36-47) 08/22/23 19:43 MCV 83.1 fl (85-98) L 08/22/23 19:43 MCH 27.0 pg (27-33) 08/22/23 19:43 MCHC 32.5 g/dL (30-55) 08/22/23 19:43 RDW 14.0 % (12.1-15.1) 08/22/23 19:43 Plt Count 374 10^3/cmm (157-399) 08/22/23 19:43 MPV 9.5 fL (7.4-10.4) 08/22/23 19:43 Neut % (Auto) 82.6 % 08/22/23 19:43 Lymph % (Auto) 9.5 % 08/22/23 19:43 [place] % (Auto) 6.8 % 08/22/23 19:43 Eos % (Auto) 0.2 % 08/22/23 19:43 Baso % (Auto) 0.4 % 08/22/23 19:43 Neut # (Auto) 20.41 10^3/uL (1.8-7.7) H 08/22/23 19:43 Lymph # (Auto) 2.3 10^3/uL (0.8-4.8) 08/22/23 19:43 [place] # (Auto) 1.7 10^3/uL (0.2-0.9) H 08/22/23 19:43 Eos # (Auto) 0.1 10^3/uL (0.0-0.8) 08/22/23 19:43 Baso # (Auto) 0.1 10^3/uL (0.0-0.1) 08/22/23 19:43 Nucleated RBC % (auto) 0 % 08/22/23 19:43 Nucleated RBCs # 0.0 /100WBC 08/22/23 19:43 Sodium 134 mmol/L (136-145) L 08/22/23 19:43 Potassium 3.6 mmol/L (3.5-5.1) 08/22/23 19:43 Chloride 98 mmol/L (98-107) 08/22/23 19:43 Carbon Dioxide 19 mmol/L (22-29) L 08/22/23 19:43 Anion Gap 20.6 (5-19) H 08/22/23 19:43 BUN 17 mg/dL (6-20) 08/22/23 19:43 Creatinine 0.8 mg/dL (0.5-0.9) 08/22/23 19:43 GFR Calculation 79.0 mL/min (90-130) L 08/22/23 19:43 Glucose 83 mg/dL (65-115) 08/22/23 19:43 Calculated Osmolality 279 mOsm/kg (285-295) L 08/22/23 19:43 Calcium 9.5 mg/dL (8.5-10.5) 08/22/23 19:43 Total Bilirubin 0.6 mg/dL (0.15-1.2) 08/22/23 19:43 AST 50 U/L (0-32) H 08/22/23 19:43 ALT 105 U/L (0-33) H 08/22/23 19:43 Alkaline Phosphatase 98 U/L (35-105) 08/22/23 19:43 Total Protein 7.9 g/dL (6.6-8.7) 08/22/23 19:43 Albumin 4.5 g/dL (3.5-5.2) 08/22/23 19:43 Globulin 3.4 g/dL (1.3-4.6) 08/22/23 19:43 Salicylates < 0.3 mg/dL (3-10) L 08/22/23 19:43 Acetaminophen < 5.0 ug/mL (10-30) L 08/22/23 19:43 Ethyl Alcohol < 10 mg/dL (0-10) 08/22/23 19:43 All radiology interpretation(s) finalized by discharge Discharge Plan Discharge Patient Disposition: Admitted As Inpatient Clinical Impression: Acute psychosis Condition: Stable Coding Level of Care Code ED Field Seismologist for [facility]
--- NOTE | 2023-08-22 18:56 | PC.NURSE ---
Per verbal order Dr Smart give patient 300mg IM Ketamine. RBVO and medication pulled, verified and given to pt in left vast/ lat d/t aggressive behavior and screaming. Order placed after by Dr Laurent for a different amount after the administration for 254mg.
[2023-08-22] MEDS: ketamine 100 mg/mL Inj 5 mL 254 MG IM (19:00)
--- NOTE | 2023-08-22 19:30 | PC.NURSE ---
Unable to obtain pt blood pressure as pt is combative and uncooperative while in restraints.
[2023-08-22] MEDS: ketamine 100 mg/mL Inj 5 mL 300 MG IM (19:37)
[2023-08-22 19:48] LABS: Basophils # 0.1 10^3/uL (0.0-0.1); Basophils % 0.4 %; Eosinophils # 0.1 10^3/uL (0.0-0.8); Eosinophils % 0.2 %; Hematocrit 41.9 % (36-47); Lymphocytes # 2.3 10^3/uL (0.8-4.8); Lymphocytes % 9.5 %; Mean Corpuscular HGB Conc 32.5 g/dL (30-55); Mean Corpuscular Volume 83.1 fl (85-98); Mean Platelet Volume 9.5 fL (7.4-10.4); Monocytes # 1.7 10^3/uL (0.2-0.9); Monocytes % 6.8 %; Neutrophils # 20.41 10^3/uL (1.8-7.7); Neutrophils % 82.6 %; Nucleated Red Blood Cells % 0 %; Platelet Count 374 10^3/cmm (157-399); Red Blood Count 5.04 10^6/uL (3.85-5.65); White Blood Count 24.69 10^3/uL (3.29-11.43)
[2023-08-22] MEDS: LORazepam 2 mg/mL INJ 10 mL MDV IM (19:50)
[2023-08-22] MEDS: haloperidol inj 5 mg/mL INJ 1 mL IM (19:50)
[2023-08-22] MEDS: diphenhydrAMINE 50 mg/mL SDV 1mL IM (19:50)
[2023-08-22 20:10] LABS: Alanine Aminotransferase 105 U/L (0-33); Albumin Level 4.5 g/dL (3.5-5.2); Alkaline Phosphatase 98 U/L (35-105); Anion Gap 20.6 (5-19); Aspartate Amino Transferase 50 U/L (0-32); Blood Urea Nitrogen 17 mg/dL (6-20); Calcium 9.5 mg/dL (8.5-10.5); Carbon Dioxide 19 mmol/L (22-29); Chloride 98 mmol/L (98-107); Creatinine Clr Calc Pharmacy 87.0736; Globulin 3.4 g/dL (1.3-4.6); Glucose 83 mg/dL (65-115); Osmolality Calculated 279 mOsm/kg (285-295); Potassium 3.6 mmol/L (3.5-5.1); Sodium 134 mmol/L (136-145); Total Bilirubin 0.6 mg/dL (0.15-1.2); Total Protein 7.9 g/dL (6.6-8.7)
[2023-08-22 20:11] LABS: Acetaminophen < 5.0 ug/mL (10-30); Alcohol Level < 10 mg/dL (0-10); Salicylate < 0.3 mg/dL (3-10)
[2023-08-22 22:18] LABS: HCG Qualitative Urine. Negative (Negative)
[2023-08-22 22:27] LABS: Blood Urine 2+ (Negative); Glucose Urine UA Norm (Normal); Ketones Urine 2+ (Negative); Protein Urine Trace (Negative); Specific Gravity, Urine 1.025 (1.005-1.030); Urine Appearance Cloudy (CLEAR); Urine Color Yellow (Yellow); pH Urine 5 (5-7)
[2023-08-22 22:28] LABS: Add Urine Microscopic? YES; Bilirubin Urine Neg (Negative); Leukocyte Esterase Urine 1+ (Negative); Nitrate Urine Negative (Negative); Urobilinogen Urine 1 mg/dL (Negative)
[2023-08-22 22:29] LABS: Add Urine Culture? Yes; Amorphous Sediment Urine TRACE /hpf; Bacteria Urine 2+ /hpf; Hyaline Casts Urine 0-4 /lpf; Mucus Urine 1+ /hpf; WBC Urine 15-25 /hpf (0-5)
[2023-08-22 22:30] LABS: Amphetamines Screen Urine Positive (Negative); Barbiturates Screen Urine Negative (Negative); Benzodiazepines Screen Urine Positive (Negative); Cocaine Screen Urine Negative (Negative); Opiate Screen Urine Negative (Negative); PCP Screen Urine Negative (Negative); THC Screen Urine Positive (Negative)
[2023-08-22] MEDS: cefTRIAXone 1,000 MG in water for injection-sterile 2.1 ML 999 MG IM (23:01)
--- NOTE | 2023-08-22 23:08 | PC.NURSE ---
1900 - 254 MG IM Ketamine not given. 300 MG IM Ketamine was administered under a verbal order from ER physician. - Wrong Ketamine order was charted on.
--- NOTE | 2023-08-22 23:26 | PC.NURSE ---
Pt placed in restraint bed by ER staff dayshift and nighshift, ER physician, Cashiers Supervisor dayshift and nightshift, police and EMS. Pt was hallucinating and not following verbal commands on admit to ER. Pt was flailing extremities, sitting up and banging head on mattress, trying to fall over the bed rails and screaming at staff unintelligibly. Dayshift RN administered IM ketamine, pt continued to act bizarre and pose a harm to herself.
--- NOTE | 2023-08-22 23:34 | PC.NURSE ---
96 Pt served with copy of 96 Hour Hold by this RN and Security at 1999.
[2023-08-23 00:20] VITALS: BP 93/63; PULSE 91; RESP 18; O2SAT 96
--- NOTE | 2023-08-23 01:50 | PC.NURSE ---
Patient arrival to the unit and would not cooperate with changing out her scrubs. Skin checked and assessment done. Did not obtain vitals due to the patient flailing nor signatures on admission paperwork. Patient continues to yell out every so often. No needs requested at this time.
[2023-08-23 06:00] VITALS: BP 112/70; PULSE 95; RESP 18; TEMP 36.5; O2SAT 98
[2023-08-23] MEDS: acetaminophen 325 mg Tablet 650 MG PO (08:22)
[2023-08-23 08:29] LABS: Basophils # 0.1 10^3/uL (0.0-0.1); Basophils % 0.6 %; Eosinophils # 0.4 10^3/uL (0.0-0.8); Eosinophils % 2.5 %; Hematocrit 40.3 % (36-47); Lymphocytes # 4.4 10^3/uL (0.8-4.8); Lymphocytes % 25.8 %; Mean Corpuscular HGB Conc 32.8 g/dL (30-55); Mean Corpuscular Hemoglobin 27.3 pg (27-33); Mean Corpuscular Volume 83.4 fl (85-98); Mean Platelet Volume 9.5 fL (7.4-10.4); Monocytes # 1.8 10^3/uL (0.2-0.9); Monocytes % 10.3 %; Neutrophils # 10.38 10^3/uL (1.8-7.7); Neutrophils % 60.5 %; Nucleated Red Blood Cells % 0 %; Platelet Count 345 10^3/cmm (157-399); Red Blood Count 4.83 10^6/uL (3.85-5.65); Red Cell Distribution Width 14.1 % (12.1-15.1); White Blood Count 17.17 10^3/uL (3.29-11.43)
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
[2023-08-23] MEDS: neomycin-poly-bacitracin oint 28 gm 1 APPLIC TOPICAL ×2 (08:59→17:59)
[2023-08-23 09:07] LABS: Alanine Aminotransferase 93 U/L (0-33); Albumin Level 4.1 g/dL (3.5-5.2); Alkaline Phosphatase 89 U/L (35-105); Anion Gap 15.4 (5-19); Aspartate Amino Transferase 73 U/L (0-32); Blood Urea Nitrogen 17 mg/dL (6-20); Calcium 8.7 mg/dL (8.5-10.5); Carbon Dioxide 21 mmol/L (22-29); Chloride 102 mmol/L (98-107); Creatinine Clr Calc Pharmacy 99.5127; Globulin 2.9 g/dL (1.3-4.6); Glomerular Filtration Rate 92.2 mL/min (90-130); Glucose 82 mg/dL (65-115); Osmolality Calculated 281 mOsm/kg (285-295); Potassium 3.4 mmol/L (3.5-5.1); Sodium 135 mmol/L (136-145); Total Bilirubin 0.5 mg/dL (0.15-1.2)
--- NOTE | 2023-08-23 09:37 | PM.CONSULT ---
Providers/Reason For Consult Consulting Physician/Specialty*: Hussain Mann MD, hospitalist Reason for Consult*: Dog bite Requesting Physician: Dr. Macias Attending Physician: Tello Macias MD Primary Care Provider: Cathy Modi APN History of Present Illness History of Present Illness Ellie Adler is a 43 year old female admitted through the emergency department for psychosis. She related to the emergency department, that she had an animal bite, a dog, to her fourth finger on the right, her ring finger. This happened 2 days prior according to the patient. She cannot tell me the name of the inspector optical instrument of the dog, or refuses to. She thinks it probably has received some vaccine but is not for sure. She has some pain with movement of the digit. No fever noted. Medications/Allergies Home Medications Medication Instructions Recorded Confirmed Last Taken Type mirtazapine 30 mg tablet 30 mg PO BEDTIME 30 days #30 tabs 03/16/23 08/23/23 Unknown Rx olanzapine 15 mg tablet 15 mg PO BEDTIME 30 days #30 tabs 03/16/23 08/23/23 Unknown Rx clonidine HCl 0.1 mg tablet 0.1 mg PO BID 08/23/23 08/23/23 Unknown History gabapentin 300 mg capsule 300 mg PO TID 08/23/23 08/23/23 Unknown History Allergies Allergy/AdvReac Type Severity Reaction Status Date / Time No Known Allergies Allergy Verified 04/11/23 22:40 Current Medications Generic Name Dose Route Start Last Admin Trade Name Freq PRN Reason Stop Dose Admin Acetaminophen 650 mg 08/22/23 22:15 08/23/23 08:22 Acetaminophen 325 Mg Tablet PO 650 mg Q6H PRN Administration Mild/Mod Pain Or Temp >/= 101 Neomycin/Polymyxin/Bacitracin 1 applic 08/23/23 09:00 08/23/23 08:59 [id number]-Mniq-Lzayqcrltu Oint 28 Gm TOPICAL 1 applic BID MARKO Administration PFSH Acute PFSH: Medical History Methamphetamine abuse No significant past medical history Surgical History No significant past surgical history Social History Smoking and tobacco/nicotine status: unknown if used tobacco/nicotine Substance/Drug Use: current Vitals/I&O/Wt Last Vital Signs Temp 97.7 F 08/23/23 06:00 Pulse 95 08/23/23 06:00 Resp 18 08/23/23 06:00 BP 112/70 08/23/23 06:00 Pulse Ox 98 08/23/23 06:00 O2 Del Method Room Air 08/23/23 06:00 08/22/23 08/23/23 08/23/23 22:59 06:59 14:59 Intake Total 2.1 / 2.1 Balance 2.1 / 2.1 Weight last 48 hrs Weight 63.503 kg Physical Exam Narrative: General exam no distress Cardiovascular regular rate and rhythm Lungs clear Abdomen soft Right hand with slight amount of swelling, fourth finger, ring finger. There is bruising circumferentially, around the area of the DIP joint and just proximal. There is some skin disruption on both the palmar and dorsal surfaces. There is not a lot of erythema. She is able to move the finger slowly, with some discomfort. Cap refill is intact distally. Data 08/23/23 08:18 08/23/23 08:18 Other Labs: X-ray which I reviewed demonstrates a probable chronic punctate soft tissue calcification overlying the fourth distal interphalangeal joint, versus a foreign body. A&P Assessment and plan (1) Dog bite: Rabies vaccine, rabies immunoglobulin Tetanus booster Continue wound care and dressing changes Augmentin 875 mg twice daily Close clinical follow-up to ensure significant infection does not develop Secondary to concern of foreign body, bite near and proximal to the DIP joint, recommend orthopedic evaluation to determine if any other measures should occur. I discussed this with her psychiatrist. Discussed with patient. Unfortunately, some of her thought pattern seems to still be erratic. Will follow-up tomorrow to reinforce instructions. White blood cell count is elevated, but this appears to chronically be so when she has come in with amphetamine use in the past. Repeat count tomorrow. Diagnoses Dog bite W54.0XXA Time Spent (min) 42
[2023-08-23] MEDS: amoxicillin-clav 875-125 mg Tablet 1 TAB PO ×2 (10:08→18:00)
[2023-08-23] MEDS: ibuprofen 600 mg Tablet PO ×2 (13:52→20:25)
[2023-08-23 14:00] VITALS: BP 100/63; PULSE 99; RESP 18; O2SAT 97
[2023-08-23] MEDS: rabies vaccine 2.5 unit SDV IM (14:36)
[2023-08-23] MEDS: tetanus-diphtheria tox (adult) 0.5 mL SDV IM (14:49)
--- NOTE | 2023-08-23 15:00 | PC.NURSE ---
DR. MONTESINOS SPOKE WITH DR. PALOMO AND DR. PALOMO ASKED THAT A MRI OF PT FINGER WOULD BE ORDERED. AT THIS TIME PT HAS EXTREME DIFFICULTY TO SIT STILL. TETANUS AND RABIES VACCINE WERE GIVEN IM ORDERED BUT PT REFUSED INJECTION TO INJURED MIDDLE FINGER. DR. ROBINS AND DR. MONTESINOS WERE UPDATED ON PT STATUS VIA PHONE. THIS NURSE LEFT VOICE MESSAGE FOR DR. PALOMO.
--- NOTE | 2023-08-23 15:19 | PC.NURSE ---
I SPOKE WITH DR. PALOMO AND BECAUSE PT IS PSYCHOTIC AND CANNOT SIT STILL. MRI CAN BE PUT ON HOLD PT IS RECEIVING ANTIBIOTICS. DR. PALOMO STATED SHE WOULD CHECK BACK IN A FEW DAYS AFTER PT HAS DETOXED OFF METHAMPHETAMINE.
[2023-08-23] MEDS: nicotine 2 mg Gum BUCCAL (18:05)
[2023-08-23 20:17] VITALS: BP 98/59; PULSE 100; RESP 18; TEMP 36.5; O2SAT 97
[2023-08-23] MEDS: OLANZapine 10 mg TABLET 15 MG PO (20:25)
[2023-08-23] MEDS: trazodone 50 mg Tablet PO (20:25)
--- NOTE | 2023-08-23 21:54 | PC.NURSE ---
PT UP TO NURSES STATION TO TAKE BEDTIME MEDICATIONS. PT WAS NOTED TO HAVE ANIMATED SPEECH AND EXCESSIVE, RAMBLING,PRESSURED AND INCLUDING PROFANITY. PT WAS UPSET STATNG WHY DID YOU NOT START MY ONE MED, YOU KNOW THAT ONE, YA THAT ONE. I'M TRYING TO THINK WHAT IT IS. RN ASKED PT IF IT WAS ZYPREXA 15 MG BECAUSE THAT WAS WHAT THIS RN WAS GOING TO GIVE HER. PT STATED YA YA THATS IT OK. PT IS OBSERVED WITH POOR HYGIENE, NO EYE CONTACT AND VERY ANXIOUS. DENIES SI/HI AND AVH AT THIS TIME. RATES ANXIETY AND DEPRESSION 04/13. PT WAS GIVEN IBUPROFREN 600 MG FOR PAIN IN FINGER. TRAZODONE 50 MG WAS GIVEN FOR COMPLAINTS OF INSOMNIA. PT IS NOTED TO HAVE FLIGHT OF IIDEAS. ALL QUESTIONS WERE ANSWERED AND SUPPORT WAS VOICED.
--- NOTE | 2023-08-23 22:05 | ED.C_ITS ---
HPI - Psych 2 General: Chief Complaint: Psychiatric Symptoms Stated Complaint: PSYCH EVAL Time Seen by Provider: 08/22/23 18:42 History of Present Illness: , PFSH ED 2 PFSH: Medical History Methamphetamine abuse No significant past medical history Surgical History No significant past surgical history Social History Smoking and tobacco/nicotine status: unknown if used tobacco/nicotine Substance/Drug Use: current Face to Face: Restrn/Seclusion Events leading up to initiation: Combative/Striking out at staff or others Evaluation of patient's immediate situation: Alert and oriented and Signs of psychological distress Patient reaction since intervention applied: Continued attempts/displays harmful behavior Recent labs reviewed: Yes Review of medications: Yes Patient's current medical/behavioral condition: No new concerns since last ROS Need for restraint or seclusion is: Continued Attending notified: Attending completed assessment Course 2 Vital Signs: Vital signs: Vital Signs Temperature 97.7 F 08/23/23 20:17 Pulse Rate 100 08/23/23 20:17 Respiratory Rate 18 08/23/23 20:17 Blood Pressure 98/59 08/23/23 20:17 Pulse Oximetry 97 08/23/23 20:17 Oxygen Delivery Me thod Room Air 08/23/23 20:17 MDM - Psych Lab Data 08/23/23 08:18 08/23/23 08:18 Radiology Impressions Finger X-Ray 08/22/23 18:42 IMPRESSION: 1. Likely chronic punctate soft tissue calcification over the dorsum of the 4th distal interphalangeal joint versus a foreign body with a soft tissue defect, please correlate clinically. 2. Negative for fracture or dislocation Laboratory Results WBC 24.69 10^3/uL (3.29-11.43) H 08/22/23 19:43 RBC 5.04 10^6/uL (3.85-5.65) 08/22/23 19:43 Hgb 13.60 g/dL (11.27-16.99) 08/22/23 19:43 Hct 41.9 % (36-47) 08/22/23 19:43 MCV 83.1 fl (85-98) L 08/22/23 19:43 MCH 27.0 pg (27-33) 08/22/23 19:43 MCHC 32.5 g/dL (30-55) 08/22/23 19:43 RDW 14.0 % (12.1-15.1) 08/22/23 19:43 Plt Count 374 10^3/cmm (157-399) 08/22/23 19:43 MPV 9.5 fL (7.4-10.4) 08/22/23 19:43 Neut % (Auto) 82.6 % 08/22/23 19:43 Lymph % (Auto) 9.5 % 08/22/23 19:43 [place] % (Auto) 6.8 % 08/22/23 19:43 Eos % (Auto) 0.2 % 08/22/23 19:43 Baso % (Auto) 0.4 % 08/22/23 19:43 Neut # (Auto) 20.41 10^3/uL (1.8-7.7) H 08/22/23 19:43 Lymph # (Auto) 2.3 10^3/uL (0.8-4.8) 08/22/23 19:43 [place] # (Auto) 1.7 10^3/uL (0.2-0.9) H 08/22/23 19:43 Eos # (Auto) 0.1 10^3/uL (0.0-0.8) 08/22/23 19:43 Baso # (Auto) 0.1 10^3/uL (0.0-0.1) 08/22/23 19:43 Nucleated RBC % (auto) 0 % 08/22/23 19:43 Nucleated RBCs # 0.0 /100WBC 08/22/23 19:43 Sodium 134 mmol/L (136-145) L 08/22/23 19:43 Potassium 3.6 mmol/L (3.5-5.1) 08/22/23 19:43 Chloride 98 mmol/L (98-107) 08/22/23 19:43 Carbon Dioxide 19 mmol/L (22-29) L 08/22/23 19:43 Anion Gap 20.6 (5-19) H 08/22/23 19:43 BUN 17 mg/dL (6-20) 08/22/23 19:43 Creatinine 0.8 mg/dL (0.5-0.9) 08/22/23 19:43 GFR Calculation 79.0 mL/min (90-130) L 08/22/23 19:43 Glucose 83 mg/dL (65-115) 08/22/23 19:43 Calculated Osmolality 279 mOsm/kg (285-295) L 08/22/23 19:43 Calcium 9.5 mg/dL (8.5-10.5) 08/22/23 19:43 Total Bilirubin 0.6 mg/dL (0.15-1.2) 08/22/23 19:43 AST 50 U/L (0-32) H 08/22/23 19:43 ALT 105 U/L (0-33) H 08/22/23 19:43 Alkaline Phosphatase 98 U/L (35-105) 08/22/23 19:43 Total Protein 7.9 g/dL (6.6-8.7) 08/22/23 19:43 Albumin 4.5 g/dL (3.5-5.2) 08/22/23 19:43 Globulin 3.4 g/dL (1.3-4.6) 08/22/23 19:43 HCG, Qual Negative (Negative) 08/22/23 22:13 Urine Color Yellow (Yellow) 08/22/23 22:08 Urine Appearance Cloudy (CLEAR) A 08/22/23 22:08 Urine pH 5 (5-7) 08/22/23 22:08 Ur Specific [place] 1.025 (1.005-1.030) 08/22/23 22:08 Urine Protein Trace (Negative) 08/22/23 22:08 Urine Glucose (UA) Norm (Normal) 08/22/23 22:08 Urine Ketones 2+ (Negative) H 08/22/23 22:08 Urine Blood 2+ (Negative) H 08/22/23 22:08 Urine Nitrate Negative (Negative) 08/22/23 22:08 Urine Bilirubin Neg (Negative) 08/22/23 22:08 Urine Urobilinogen 1 mg/dL (Negative) H 08/22/23 22:08 Ur Leukocyte Esterase 1+ (Negative) H 08/22/23 22:08 Urine RBC 5-10 /hpf (0-2) H 08/22/23 22:08 Urine WBC 15-25 /hpf (0-5) H 08/22/23 22:08 Ur Squamous Epith Cells 5-10 /hpf (0-5) H 08/22/23 22:08 Amorphous Sediment Trace /hpf 08/22/23 22:08 Urine Bacteria 2+ /hpf (NONE) H 08/22/23 22:08 Hyaline Casts 0-4 /lpf H 08/22/23 22:08 Urine Mucus 1+ /hpf 08/22/23 22:08 Salicylates < 0.3 mg/dL (3-10) L 08/22/23 19:43 Urine Opiates Screen Negative ng/mL (Negative) 08/22/23 22:08 Acetaminophen < 5.0 ug/mL (10-30) L 08/22/23 19:43 Ur Barbiturates Screen Negative ng/mL (Negative) 08/22/23 22:08 Ur Phencyclidine Scrn Negative ng/mL (Negative) 08/22/23 22:08 Ur Amphetamines Screen Positive ng/mL (Negative) H 08/22/23 22:08 U Benzodiazepines Scrn Positive ng/mL (Negative) H 08/22/23 22:08 Urine Cocaine Screen Negative ng/mL (Negative) 08/22/23 22:08 U Marijuana (THC) Screen Positive ng/mL (Negative) H 08/22/23 22:08 Ethyl Alcohol < 10 mg/dL (0-10) 08/22/23 19:43 Discharge Plan Discharge Patient Disposition: Admitted As Inpatient Admit Provider: Tello Macias Clinical Impression: Acute psychosis Condition: Stable Coding Level of Care Code ED [employer] [facility]
[2023-08-24 06:00] VITALS: BP 103/65; PULSE 116; RESP 18; TEMP 36.4; O2SAT 99
--- NOTE | 2023-08-24 06:36 | PC.NURSE ---
PT RECEIVED SCHEDULED DOSE OF ZYPREXA 15 MG EARLIER IN THE SHIFT WELL TRAZODONE 50 MG FOR COMPLAINTS OF INSOMNIA. MEDICATIONS DEEMED EFFECTIVE. PT HAS BEEN OBSERVED RESTING THE MAJORITY OF THE NIGHT. PT HAS SLEPT APPROXIMATELY 9-10 HOURS. PT CURRENTLY IN BED RESTING WITH EYES CLOSED. NO DISTRESS NOTED. SUPPORT VOICED.
[2023-08-24 08:03] LABS: Hepatitis A Antibody IgM Non-Reactive (Nonreactive); Hepatitis B Core IgM Non-Reactive (Nonreactive); Hepatitis B Surface Antigen Non-Reactive (Nonreactive)
[2023-08-24] MEDS: acetaminophen 325 mg Tablet 650 MG PO (08:25)
[2023-08-24] MEDS: amoxicillin-clav 875-125 mg Tablet 1 TAB PO ×2 (08:25→18:12)
[2023-08-24] MEDS: nicotine 4 mg lozenge MUCOUS MEM ×2 (08:25→16:30)
--- NOTE | 2023-08-24 08:47 | PC.OT ---
OT EVALUATION FOR 4TH DIGIT EVALUATION RECEIVED. PATIENT UNABLE TO SIT STILL AT THIS TIME. PATIENT ENCOURAGED TO SIT STILL FOR MRI SO THAT IT CAN BE DETERMINED WHAT THE PROBLEM IS. PATIENT ENCOURAGED TO ELEVATE HAND AND ICE IT. PATIENT STATES, NO, IT HURTS TOO BAD . WILL CONTINUE TO MONITOR PATIENT AND PERFORM EVALUATION AND DO WHAT IS NECESSARY.
--- NOTE | 2023-08-24 08:48 | P.PN_ITS ---
Subjective 2 Subjective: Reports her finger is painful. Nursing indicates she has trouble keeping the dressing on. Medications: Reviewed: Yes Vitals/I&O/Wt Last Vital Signs Temp 97.5 F L 08/24/23 06:00 Pulse 116 H 08/24/23 06:00 Resp 18 08/24/23 06:00 BP 103/65 08/24/23 06:00 Pulse Ox 99 08/24/23 06:00 O2 Del Method Room Air 08/24/23 06:00 Weight last 48 hrs Weight 63.503 kg Physical Exam 2 Narrative: General exam no distress Cardiovascular regular rate and rhythm Lungs clear Abdomen soft Right hand with slight amount of swelling, fourth finger, ring finger. There is bruising circumferentially, around the area of the DIP joint and just proximal. There is some skin disruption on both the palmar and dorsal surfaces. There is not a lot of erythema. She is able to move the finger slowly, with some discomfort. Cap refill is intact distally. Movement is present at each joint, indicating tendon is intact. She can plantar and dorsiflex. This movement is about the same as yesterday. Data 08/23/23 08:18 08/23/23 08:18 A&P Assessment and plan (1) Dog bite: Rabies vaccine series. She should receive her next dose of vaccine at day 3 from initial, then 7, then 14. Immunoglobulin ordered but refused by patient. Tetanus booster given yesterday Continue wound care and dressing changes Continue Augmentin 875 mg twice daily Close clinical follow-up to ensure significant infection does not develop Secondary to concern of foreign body, bite near and proximal to the DIP joint, recommend orthopedic evaluation to determine if any other measures should occur. I discussed this with her psychiatrist. Discussed with patient. Instructions reinforced White blood cell count is elevated, but this appears to chronically be so when she has come in with amphetamine use in the past. Awaiting CBC today Plan Increased LFTs on admission. This may be secondary to drug use. Hepatitis panel pending Attestations 2 Medical Necessity Statement*: As per primary Diagnoses Dog bite W54.0XXA Time Spent (min) 15
[2023-08-24] MEDS: OLANZapine 5 mg ODT PO (08:55)
[2023-08-24] MEDS: neomycin-poly-bacitracin oint 28 gm 1 APPLIC TOPICAL (08:55)
--- NOTE | 2023-08-24 09:00 | PC.NURSE ---
Patient visibly anxious, administered zyprexa 5mg ODT to patient.
[2023-08-24 09:11] LABS: Basophils # 0.1 10^3/uL (0.0-0.1); Basophils % 0.6 %; Eosinophils # 0.3 10^3/uL (0.0-0.8); Eosinophils % 2.7 %; Hematocrit 41.5 % (36-47); Lymphocytes % 16.4 %; Mean Corpuscular HGB Conc 31.6 g/dL (30-55); Mean Corpuscular Hemoglobin 26.8 pg (27-33); Mean Corpuscular Volume 84.9 fl (85-98); Monocytes # 1.2 10^3/uL (0.2-0.9); Monocytes % 9.9 %; Neutrophils # 8.54 10^3/uL (1.8-7.7); Nucleated Red Blood Cells % 0 %; Platelet Count 305 10^3/cmm (157-399); Red Blood Count 4.89 10^6/uL (3.85-5.65); Red Cell Distribution Width 14.4 % (12.1-15.1)
[2023-08-24 09:53] LABS: Hepatitis C Virus Antibody Reactive (Nonreactive)
[2023-08-24] MEDS: haloperidol 5 mg Tablet PO (10:47)
[2023-08-24] MEDS: LORazepam 2 mg Tablet PO (11:58)
[2023-08-24 14:00] VITALS: RESP 18
--- NOTE | 2023-08-24 16:06 | P.CONIM_ITS ---
Providers/Reason For Consult 2 Consulting Physician/Specialty*: Beba Pang MD Reason for Consult*: Dog bite to right ring finger Requesting Physician: Dr. Tello Macias MD Attending Physician: Tello Macias MD Primary Care Provider: Cathy Modi APN History of Present Illness History of Present Illness Ellie Adler is a 43 year old female who was admitted through the emergency department on August 22 following a psychotic episode. Upon admission to the emergency department, she noted that she had had a dog bite to the ring finger of her right hand. According to the patient, this occurred 2 days prior to admission. At the time I saw her, she states it is her dog even though previously she said it was a friend's dog. When queried regarding appropriate shots, the patient stated the dog probably did not have them. The patient was seen by the hospitalist team, and she was placed on Neosporin ointment as well as Augmentin. Patient also received appropriate therapies such as tetanus and rabies shot. She is seen in the Neuropsych Unit. According to nursing, she has been hitting her hand against the window of the nurses station. She has removed any sort of Band-Aid or other wrap to the hand. Review of Systems 2 General: Reports: 10 or more systems reviewed and unremarkable except in HPI and below Skin/Breast: Reports: other (Laceration right fourth digit palmar aspect) Psych: Reports: visual hallucinations and auditory hallucinations; Denies: suicidal ideation or homicidal ideation Medications/Allergies Home Medications Medication Instructions Recorded Confirmed Last Taken Type mirtazapine 30 mg tablet 30 mg PO BEDTIME 30 days #30 tabs 03/16/23 08/23/23 Unknown Rx olanzapine 15 mg tablet 15 mg PO BEDTIME 30 days #30 tabs 03/16/23 08/23/23 Unknown Rx clonidine HCl 0.1 mg tablet 0.1 mg PO BID 08/23/23 08/23/23 Unknown History gabapentin 300 mg capsule 300 mg PO TID 08/23/23 08/23/23 Unknown History Allergies Allergy/AdvReac Type Severity Reaction Status Date / Time No Known Allergies Allergy Verified 04/11/23 22:40 Current Medications Generic Name Dose Route Start Last Admin Trade Name Freq PRN Reason Stop Dose Admin Acetaminophen 650 mg 08/22/23 22:15 08/24/23 08:25 Acetaminophen 325 Mg Tablet PO 650 mg Q6H PRN Administration Mild/Mod Pain Or Temp >/= 101 Amoxicillin/Clavulanate Potassium 1 tab 08/23/23 09:40 08/24/23 08:25 Amoxicillin-Clav 875-125 Mg Tablet PO 1 tab BID MARKO Administration Protocol Haloperidol 5 mg 08/23/23 00:07 08/24/23 10:47 Haloperidol 5 Mg Tablet PO 5 mg Q4H PRN Administration AGITATION Ibuprofen 600 mg 08/23/23 00:04 08/23/23 20:25 Ibuprofen 600 Mg Tablet PO 600 mg Q6H PRN Administration MODERATE PAIN Lorazepam 2 mg 08/24/23 11:46 08/24/23 11:58 Lorazepam 2 Mg Tablet PO 2 mg Q4H PRN Administration ANXIETY Neomycin/Polymyxin/Bacitracin 1 applic 08/23/23 09:00 08/24/23 08:55 Dqfdecwp-Ynin-Mpjosqtagu Oint 28 Gm TOPICAL 1 applic BID MARKO Administration Nicotine Polacrilex 4 mg 08/23/23 00:05 08/24/23 08:25 Nicotine 4 Mg Lozenge MUCOUS MEM 4 mg Q2H PRN Administration NICOTINE CRAVINGS Nicotine Polacrilex 2 mg 08/23/23 00:07 08/23/23 18:05 Nicotine 2 Mg Gum BUCCAL 2 mg Q2H PRN Administration NICOTINE WITHDRAWAL Olanzapine 5 mg 08/23/23 00:07 08/24/23 08:55 Olanzapine 5 Mg Odt PO 5 mg Q4H PRN Administration Agitation/Psychosis Olanzapine 15 mg 08/23/23 21:00 08/23/23 20:25 Olanzapine 10 Mg Tablet PO 15 mg BEDTIME MARKO Administration Trazodone HCl 50 mg 08/23/23 00:07 08/23/23 20:25 Trazodone 50 Mg Tablet PO 50 mg BEDTIME PRN Administration SLEEP PFSH Acute 2 PFSH: Medical History Methamphetamine abuse No significant past medical history Surgical History No significant past surgical history Social History Smoking and tobacco/nicotine status: unknown if used tobacco/nicotine Substance/Drug Use: current Vitals/I&O/Wt Last Vital Signs Temp 97.5 F L 08/24/23 06:00 Pulse 116 H 08/24/23 06:00 Resp 18 08/24/23 06:00 BP 103/65 08/24/23 06:00 Pulse Ox 99 08/24/23 06:00 O2 Del Method Room Air 08/24/23 06:00 Weight last 48 hrs Weight 140 lb Physical Exam 2 Const: COMMON NORMALS: average body habitus and alert GENERAL APPEARANCE: c omfortable ORIENTATION/CONSCIOUSNESS: Yes awake HENMT: COMMON NORMALS: normocephalic and atraumatic HEAD & SCALP: n ormocephalic and atraumatic Eye: GENERAL EYE: appearance normal, both eyes and all related structures Chest: COMMONS NORMALS: normal inspection of the chest Resp: COMMON NORMALS: normal respiratory effort EFFORT & INSPECTION: Yes symmetric chest movement Extremity: RIGHT UPPER EXTREMITY: Yes hand & digits (Right ring finger demonstrates findings consistent with a dog bite) Right hand and digits: Yes inspection (Erythema and swelling about the finger), Yes palpation (Pain to palpation), Yes ROM exam (Limited secondary to swelling), Yes neurovascular exam (Unable to assess), Yes tendon exam (No obvious tendon injury) and Yes other (No evidence of flexor or extensor tendon inflammation at this time) Neuro: SENSORIUM/ORIENTATION: Yes alert Skin: COMMON NORMALS: no rashes or lesions noted GENERAL SKIN EXAM: no rashes or lesions noted Data 08/24/23 08:47 08/23/23 08:18 Micro: Microbiology 08/22/23 22:08 Urine Culture - Final Urine,Clean Catch Xray Ortho: My impression: 2 view imaging of the patient's right ring finger was obtained. Images demonstrate that there is a calcification over the dorsum of the ring finger distal interphalangeal joint. Radiologist suggests possibly a chronic punctate soft tissue calcification, but I have concerns that there may be a mallet finger type of injury to this area with the dog bite. The fragment is too small for any sort of repair. It is doubtful that this is a foreign body. A&P Assessment and plan (1) Open wound of right ring finger due to dog bite: This 43-year-old patient was admitted on August 22, 2023 with complaints of a dog bite to the right ring finger which she stated was 28 days old at the time of presentation to the emergency department. At that time, she was also noted to have significant issues which caused her to be placed in the Neuropsych Unit. Patient has a history of methamphetamine dependence and psychosis, and at the time of admission she also had suicidal ideation. At the time I saw the patient, she had struck her finger on the window of the nurses station multiple times. She was not tolerating any dressing to the finger. Upon my evaluation of the x-ray, it is not felt the calcification visualized on x-ray was foreign body, but rather, it was likely either a mallet finger type of injury or as suggested by radiology possibly chronic calcification to the area. The finger is red and swollen, but it has not extended up into the flexor or extensor tendon area. Patient will continue with antibiotics as ordered by the hospitalist team. I have ordered a Stax splint for her if she will tolerate it. Otherwise, she will continue in her current state with tolerating nothing on her finger at this time. Consult Attestations 2 Medical Necessity Statement: Per psych and hospitalist team Coding Level of Care Code 38547 Diagnoses Open wound of right ring finger due to dog bite S61.254A; W54.0XXA
[2023-08-24] MEDS: risperiDONE 0.25 mg Tablet 0.5 MG PO (16:29)
[2023-08-24] MEDS: ibuprofen 600 mg Tablet PO (16:30)
--- NOTE | 2023-08-24 16:34 | PC.NURSE ---
Patient was seen by orthopedics for hand. Patient was given a finger splint consisting of about one inch length of plastic and a short amount of velcro. Per Dr. Pang, if the splint falls off, we are to return the splint and tighten it with the velcro. The splint will fall off as the swelling decreases.
--- NOTE | 2023-08-24 16:47 | P.NPUPN_ITS ---
Subjective NPU 2 Subjective: 43-year-old white female with methamphet amine dependence and psychosis admitted with suicidal ideation as well. The patient had reported that she was feeling better. She continued to be somewhat hyper active and excessively preoccupied with moving around the unit. She continued to struggle with complaints of pain in her right finger and continued to accidentally bumped into various objects with it. She had not been able to fully provide any information regarding how she came to be here at the time. There was no evidence of clear aggression although she did require significant redirection by staff. Patient stated that she was here in the hospital to serve all the others around her for the sake of experimentation. Mental Status Exam 2 MSE Comments: This is a slender but well-nourished, well-developed appearing white female looking older than her stated age with limited grooming and absent eye contact with absent dentition. She had a bandaged right hand that she continued to touch and focus on as she was wandering through the hallway. There was odd bizarre hand movements continuing to writhe in pain while bumping her finger in various objects. She was minimally cooperative on exam. ? Speech was more productive with normal volume and continued periods of increased speech latency. ? Mood was endorsed as good. Her affect was bizarre. Thought process was illogical and nonlinear. Thought content: Patient did not answer questions linearlly but patient demonstrated no aggression towards herself or others, There was bizarre ideas noted regarding being in an experiment. She did appear to be responding to internal stimuli. Her attention and concentration were impaired and memory was unreliable but none were formally tested.? She is alert and appeared to be oriented to self, but not place or time. Insight, judgment and impulse control are impaired. Vitals/I&O/Wt Last Vital Signs Temp 97.5 F L 08/24/23 06:00 Pulse 116 H 08/24/23 06:00 Resp 18 08/24/23 06:00 BP 103/65 08/24/23 06:00 Pulse Ox 99 08/24/23 06:00 O2 Del Method Room Air 08/24/23 06:00 Weight last 48 hrs Weight 63.503 kg Data NPU 08/24/23 08:47 08/23/23 08:18 Micro: Microbiology 08/22/23 22:08 Urine Culture - Final Urine,Clean Catch Microbiology 08/22/23 22:08 Urine,Clean Catch Urine Culture - Final A&P Assessment and plan (1) Acute psychosis: (2) Methamphetamine use disorder, severe: Plan This is a 43-year-old white female with a long history of mental health and addiction issues presents with psychosis likely triggered by methamphetamine use. 1. Continue zyprexa at 15mg at night. Appreciate med/surg help regarding finger infection. 2. Continue every 15 minute checks for safety. 3. Encourage individual, group and milieu therapies. 4. Encourage sober living treatment after discharge at the highest level of care to which she is willing to commit. Involuntary Hold Information 2 96 Hour Hold: 96 Hour Involuntary Admission: Yes 96 Hour Hold Ending Date: 08/30/23 96 Hour Hold Ending Time: 00:01 Attestations NPU 2 Medical Necessity Statement*: Inpatient psychiatric hospitalization is medically necessary and the clinically appropriate intervention at this time. We will monitor/initiate medications and make changes as indicated. Her likely length of stay is 7 to 10 days which may involve initiating a 21-day hold. Coding Level of Care Code Acute Code for [facility] Diagnoses Acute psychosis F23 Methamphetamine use disorder, severe F15.20
--- NOTE | 2023-08-24 16:47 | PC.NURSE ---
Per Dr. Macias, patient doesn't require a 1 to 1 sitter for her splint.
--- NOTE | 2023-08-24 18:33 | PC.NURSE ---
Per pain medication, this nurse called and talked to Dr. Pang. Dr. Pang stated that she doesn't feel comfortable giving the patient medication for pain. Dr. Pang stated that this will be up to the psychiatrist, that Dr. Mann, is handling the antibiotic. Dr. Pang said that we can still apply ointment to the finger, just take off the splint, apply then return splint to finger
[2023-08-24 20:11] VITALS: RESP 16
--- NOTE | 2023-08-24 20:11 | PC.NURSE ---
Due to patient unable to sleep today. Per CN only RR documented.
[2023-08-24] MEDS: OLANZapine 10 mg TABLET 15 MG PO (21:36)
[2023-08-24] MEDS: CELEcoxib 200 mg Capsule PO (21:37)
[2023-08-25 06:00] VITALS: BP 91/56; PULSE 87; RESP 16; TEMP 36.7; O2SAT 98
[2023-08-25] MEDS: hyDROXYzine 25 mg Capsule 50 MG PO ×3 (06:53→19:33)
[2023-08-25] MEDS: acetaminophen 325 mg Tablet 650 MG PO (07:37)
[2023-08-25] MEDS: nicotine 4 mg lozenge MUCOUS MEM (07:38)
[2023-08-25] MEDS: amoxicillin-clav 875-125 mg Tablet 1 TAB PO ×2 (07:38→18:05)
--- NOTE | 2023-08-25 07:39 | PC.NURSE ---
Administered Acetaminophen 650mg PO to patient for pain in right ring finger 7/10, constant.
[2023-08-25] MEDS: OLANZapine 5 mg ODT PO (08:18)
--- NOTE | 2023-08-25 08:19 | PC.NURSE ---
Patient tearful, rates anxiety 8/10. Patient states that she is having trouble determining what is real and what is false. Patient states that this is overwhelming for her.
--- NOTE | 2023-08-25 10:02 | P.PN_ITS ---
Subjective 2 Subjective: No issues overnight. Splint placed by Ortho. Patient reports finger is still somewhat painful. Medications: Reviewed: Yes Vitals/I&O/Wt Last Vital Signs Temp 98.1 F 08/25/23 06:00 Pulse 87 08/25/23 06:00 Resp 16 08/25/23 06:00 BP 91/56 08/25/23 06:00 Pulse Ox 98 08/25/23 06:00 O2 Del Method Room Air 08/24/23 06:00 Physical Exam 2 Narrative: General exam no distress Right hand with improvement of swelling, fourth finger, ring finger. There is bruising circumferentially, around the area of the DIP joint and just proximal. There is some skin disruption on both the palmar and dorsal surfaces. No significant erythema today. Data 08/24/23 08:47 08/23/23 08:18 Micro: Microbiology 08/22/23 22:08 Urine Culture - Final Urine,Clean Catch A&P Assessment and plan (1) Acute psychosis: As per primary (2) Dog bite: Rabies vaccine series. She received her initial rabies vaccine on August 23. Repeat vaccine tomorrow, then day 7, then 14. Immunoglobulin ordered but refused by patient. Tetanus booster on August 23 Continue wound care Continue Augmentin 875 mg twice daily. 14 days total. Close clinical follow-up to ensure significant infection does not develop Appreciate orthopedic consultation I will sign off at this point Plan Elevated LFTs. Her hepatitis C antibody is positive. Awaiting PCR. If this shows viral load, she will need follow-up with this as an outpatient with GI or infectious disease. Attestations 2 Medical Necessity Statement*: As per primary Diagnoses Acute psychosis F23 Dog bite W54.0XXA Time Spent (min) 21
[2023-08-25] MEDS: LORazepam 2 mg Tablet PO ×2 (10:05→15:57)
--- NOTE | 2023-08-25 10:06 | PC.NURSE ---
Administered 2mg Ativan PO to patient. Patient voices anxiety. Patient tearful, shaking. Patient agitated. Attempted to de-esculate verbally
[2023-08-25 14:00] VITALS: BP 112/77; PULSE 108; RESP 18; TEMP 36.6; O2SAT 99
--- NOTE | 2023-08-25 16:43 | W.PM.NPUPNS ---
Subjective NPU Subjective: 43-year-old white female with methamphetamine dependence and psychosis admitted with suicidal ideation as well. She denied suicidal ideation. She had continued report feeling anxious and requested that she be moved to the other side because certain people appear to be triggering her. She had been less irritable on the milieu. There were less vocalizations. She had complied with the medical management of her dog bite. She had reported continued pain. Patient was informed of the potential benefits of continuing olanzapine when discharged to help prevent potential psychotic episodes after she resumes methamphetamine use. Patient did not wish to consider inpatient substance abuse treatment. She reported improved appetite. Mental Status Exam MSE Comments: This is a slender but well-nourished, well-developed appearing white female looking older than her stated age with limited grooming and absent eye contact with absent dentition. She had a bandaged right hand that she appeared to be protecting better with no hyperkinetic jerking of her hand leading to a painful accident with her right hand. She was minimally cooperative on exam. ? Speech was more productive with normal volume and continued periods of increased speech latency. ? Mood was endorsed as better. Her affect was less bizarre. Thought process was logical and more linear. Thought content:no HI, no SI, She did appear to be responding to internal stimuli. Her attention and concentration were impaired and memory was unreliable but none were formally tested.? She is alert and appeared to be oriented to self along with place and time. Insight is poor, judgment and impulse control is improving. Vitals/I&O/Wt Last Vital Signs Temp 98 F 08/25/23 14:00 Pulse 108 H 08/25/23 14:00 Resp 18 08/25/23 14:00 BP 112/77 08/25/23 14:00 Pulse Ox 99 08/25/23 14:00 O2 Del Method Room Air 08/24/23 06:00 Data NPU 08/24/23 08:47 08/23/23 08:18 A&P Assessment and plan (1) Acute psychosis: As per primary (2) Dog bite: Rabies vaccine series. She received her initial rabies vaccine on August 23. Repeat vaccine tomorrow, then day 7, then 14. Immunoglobulin ordered but refused by patient. Tetanus booster on August 23 Continue wound care Continue Augmentin 875 mg twice daily. 14 days total. Close clinical follow-up to ensure significant infection does not develop Appreciate orthopedic consultation I will sign off at this point Plan Elevated LFTs. Her hepatitis C antibody is positive. Awaiting PCR. If this shows viral load, she will need follow-up with this as an outpatient with GI or infectious disease. Involuntary Hold Information 96 Hour Hold: 96 Hour Involuntary Admission: Yes 96 Hour Hold Ending Date: 08/30/23 96 Hour Hold Ending Time: 00:01 Attestations NPU Medical Necessity Statement*: Inpatient psychiatric hospitalization is medically necessary and the clinically appropriate intervention at this time. We will monitor/initiate medications and make changes as indicated. Her likely length of stay is 7 to 10 days with patient showing improvement already while on zyprexa. Coding Level of Care Code Acute Code for [facility] Fwd Diagnoses Acute psychosis F23 Dog bite W54.0XXA
[2023-08-25] MEDS: trazodone 50 mg Tablet PO (20:03)
[2023-08-25] MEDS: OLANZapine 10 mg TABLET 15 MG PO (20:04)
[2023-08-25] MEDS: haloperidol 5 mg Tablet PO (20:54)
[2023-08-25 21:01] VITALS: BP 115/75; PULSE 116; RESP 20; O2SAT 97
[2023-08-26 06:00] VITALS: BP 102/65; PULSE 87; RESP 17; TEMP 37.1; O2SAT 97
[2023-08-26] MEDS: amoxicillin-clav 875-125 mg Tablet 1 TAB PO ×2 (08:25→17:33)
[2023-08-26] MEDS: rabies vaccine 2.5 unit SDV IM (08:26)
[2023-08-26] MEDS: LORazepam 2 mg Tablet PO ×2 (08:26→13:39)
[2023-08-26] MEDS: nicotine 4 mg lozenge MUCOUS MEM ×2 (09:59→11:20)
[2023-08-26] MEDS: hyDROXYzine 25 mg Capsule 50 MG PO ×2 (09:59→20:52)
[2023-08-26 13:10] LABS: HEP C RNA Viral Load Quant 224000 IU/mL (NOT DETECTED); HEP C RNA Viral Load Quant 5.35 Log IU/mL (NOT DETECTED)
[2023-08-26 13:41] VITALS: BP 137/86; PULSE 77; RESP 16; TEMP 36.4; O2SAT 100
--- NOTE | 2023-08-26 14:31 | P.PN_ITS ---
Subjective 2 Subjective: Ellie is doing well. She was up and on the phone with rounds today. Patient states that her pain has decreased however, she does continue to have pain in the hand. She is taking Tylenol and ibuprofen as ordered by hospitalist team. Patient does have previously prescribed Stax splint in place with Velcro. Erythema and swelling have reduced since previous visit. Patient is currently residing in the Neuropsych Unit and this is where she was seen today. Medications: Reviewed: Yes Vitals/I&O/Wt Last Vital Signs Temp 97.6 F 08/26/23 13:41 Pulse 77 08/26/23 13:41 Resp 16 08/26/23 13:41 BP 137/86 08/26/23 13:41 Pulse Ox 100 08/26/23 13:41 O2 Del Method Room Air 08/26/23 13:41 Physical Exam 2 Const: COMMON NORMALS: average body habitus and alert GENERAL APPEARANCE: c omfortable ORIENTATION/CONSCIOUSNESS: Yes awake HENMT: COMMON NORMALS: normocephalic and atraumatic HEAD & SCALP: n ormocephalic and atraumatic Eye: GENERAL EYE: appearance normal, both eyes and all related structures Chest: COMMONS NORMALS: normal inspection of the chest Resp: COMMON NORMALS: normal respiratory effort EFFORT & INSPECTION: Yes symmetric chest movement Extremity: RIGHT UPPER EXTREMITY: Yes hand & digits (Right ring finger demonstrates findings consistent with a dog bite) Right hand and digits: Yes inspection (Erythema and swelling about the finger. No active drainage. ), Yes palpation (Pain to palpation at bite site. No IP joint tenderness. No warmth.), Yes ROM exam (Limited secondary to swelling. Able to make loose fist. Full extension.), Yes neurovascular exam (Sensation intact to light touch. Rapid cap refill. Blanches well. ) and Yes tendon exam (No evidence of flexor or extensor tendon inflammation at this time) Neuro: SENSORIUM/ORIENTATION: Yes alert Skin: COMMON NORMALS: no rashes or lesions noted GENERAL SKIN EXAM: no rashes or lesions noted Data 08/24/23 08:47 08/23/23 08:18 A&P Assessment and plan (1) Open wound of right ring finger due to dog bite: Ellie is a 43-year-old patient who I am seeing in rounds today. She is currently been admitted to the Neuropsych Unit for a acute psychotic episode. She presented to the emergency department with dog bite to her finger. Patient has been treated with Augmentin orally and Neosporin topically. She has done well in her stack splint and has continued to wear the splint, per nursing report. The patient states that her pain is some improved however, she does continue to express the need for advanced medications. It was explained to the patient that we do not want to add any narcotic pain medications to her at this time and she will need to continue to use the Tylenol and ibuprofen as given to her. Her erythema, swelling and tenderness have decreased significantly since initial evaluation. She is able to make a loose fist with the evaluation today. She appears to be neurovascularly intact and verbalizes that she can feel light touch. Patient was given appropriate rabies and tetanus boosters through the emergency department when she initially came in. Her overall labs are trending in the right direction with a significant decrease in her white blood cells. At this time, I believe she is orthopedically stable for discharge however, she will need to remain inpatient until cleared by psych and hospitalist team. She will need to follow-up with her primary care provider once discharged for continued monitoring of her bite site. Attestations 2 Medical Necessity Statement*: Per psych and hospitalist team recommendation. Coding Level [facility] Open wound of right ring finger due to dog bite S61.254A; W54.0XXA
--- NOTE | 2023-08-26 16:21 | P.NPUPN_ITS ---
Subjective NPU 2 Subjective: Patient presented today reporting that she is feeling better. Per staff reports this has been an improvement today. She was very resistant to talk about addiction reporting that she does not think marijuana is really a drug. 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 She then talked about maybe getting into [facility] house and hoping that being away from the things that are attempting would help her with her sobriety. We discussed the importance of direct drug and alcohol treatment and also the importance of being truthful with herself about what the level of drug use is. She denied any issues with the medications that have been restarted. She denied any side effects of those medications. Mental Status Exam 2 MSE Comments: This is a slender but well-nourished, well-developed appearing white female looking older than her stated age with limited grooming and eye contact. Reddish hair and absent dentition. No abnormal movements.? Mostly cooperative with exam in mild distress.? Speech was more spontaneous with more normal rate and volume.? Mood described as fine, affect more euthymic.? Thought process linear.? Thought content: Patient denied suicidal or homicidal ideation, there were no delusions reported or noted, she denied any auditory or visual hallucinations.? Attention and concentration were improving but memory was unreliable and none were formally tested.? She is alert and oriented x3.? Insight poor judgment limited and impulse control is impaired, but improving. Vitals/I&O/Wt Last Vital Signs Temp 97.6 F 08/26/23 13:41 Pulse 77 08/26/23 13:41 Resp 16 08/26/23 13:41 BP 137/86 08/26/23 13:41 Pulse Ox 100 08/26/23 13:41 O2 Del Method Room Air 08/26/23 13:41 Data NPU 08/24/23 08:47 08/23/23 08:18 A&P Assessment and plan (1) Acute psychosis: (2) Methamphetamine use disorder, severe: Plan This is a 43-year-old white female with a long history of mental health and addiction issues presents with psychosis likely triggered by methamphetamine use. 1. Continue zyprexa at 15mg at night. Appreciate med/surg help regarding finger infection. 2. Continue every 15 minute checks for safety. 3. Encourage individual, group and milieu therapies. 4. Encourage sober living treatment after discharge at the highest level of care to which she is willing to commit. 5. Continue rabies series with next shot due on 08/30/2023 and the final on 09/06/2023. Involuntary Hold Information 2 96 Hour Hold: 96 Hour Involuntary Admission: Yes 96 Hour Hold Ending Date: 08/30/23 96 Hour Hold Ending Time: 00:01 Attestations NPU 2 Medical Necessity Statement*: Inpatient psychiatric hospitalization is medically necessary and the clinically appropriate intervention at this time. We will monitor/initiate medications and make changes as indicated. Her likely length of stay is 3-5 days with patient showing improvement already while on zyprexa. Coding Level of Care Code Acute Code for [facility] Diagnoses Acute psychosis F23 Methamphetamine use disorder, severe F15.20
[2023-08-26] MEDS: neomycin-poly-bacitracin oint 28 gm 1 APPLIC TOPICAL (17:34)
[2023-08-26] MEDS: LORazepam 2 mg Tablet 1 MG PO (17:50)
[2023-08-26] MEDS: OLANZapine 10 mg TABLET 15 MG PO (20:52)
[2023-08-26] MEDS: trazodone 50 mg Tablet PO (20:52)
[2023-08-26 21:02] VITALS: RESP 16
[2023-08-27 06:00] VITALS: BP 105/61; PULSE 83; RESP 16; TEMP 36.7; O2SAT 97
[2023-08-27] MEDS: acetaminophen 325 mg Tablet 650 MG PO (07:39)
[2023-08-27] MEDS: OLANZapine 5 mg ODT PO (08:15)
[2023-08-27] MEDS: amoxicillin-clav 875-125 mg Tablet 1 TAB PO (08:15)
[2023-08-27] MEDS: ibuprofen 600 mg Tablet PO (09:30)
[2023-08-27] MEDS: neomycin-poly-bacitracin oint 28 gm 1 APPLIC TOPICAL (09:36)
[2023-08-27] MEDS: nicotine 4 mg lozenge MUCOUS MEM (10:52)
[2023-08-27] MEDS: hyDROXYzine 25 mg Capsule 50 MG PO (11:50)
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
--- NOTE | 2023-08-27 13:06 | DCPLANNER ---
IMM completed 08/27/2023 @ [id number]. Pt was given a copy of rights and she stated she understood her rights.
[2023-08-27 13:07] VITALS: BP 105/61; PULSE 83; RESP 16; TEMP 36.7; O2SAT 97
== END 2023-08-27 14:04 | disposition home or self-care (01) | DRG 897 ==
LOC: ER 22:26 → NP 23:49
PROVIDERS: Internal Medicine; Admitting Provider Psychiatry & Neurology Psychiatry; Emergency Provider Internal Medicine; PCP Nurse Practitioner; Visit Provider Psychiatry & Neurology Psychiatry
DX: F15.251 Other stimulant dependence with stimulant-induced psychotic disorder with hallucinations (principal); R45.851 Suicidal ideations; G89.29 Other chronic pain; M54.9 Dorsalgia, unspecified; B19.20 Unspecified viral hepatitis C without hepatic coma; Z86.14 Personal history of Methicillin resistant Staphylococcus aureus infection; F60.3 Borderline personality disorder; F43.10 Post-traumatic stress disorder, unspecified; Z62.810 Personal history of physical and sexual abuse in childhood; Z91.52 Personal history of nonsuicidal self-harm; F20.9 Schizophrenia, unspecified; F32.9 Major depressive disorder, single episode, unspecified; F17.210 Nicotine dependence, cigarettes, uncomplicated; F12.10 Cannabis abuse, uncomplicated; S61.254A Open bite of right ring finger without damage to nail, initial encounter; W54.0XXA Bitten by dog, initial encounter; Y92.89 Other specified places as the place of occurrence of the external cause
CPT/HCPCS: 36415; 73140; 80053; 80074; 80306; 80307; 81001; 81025; 85025; 87086; 87522; 90471; 90675; 90714; 96372; 97150; 97165; 97760; 99285; J0696; J1200; J1630; J2060; J3490